=== PATIENT | male | born 1935 | race Caucasian/White ===

== ENCOUNTER 2016-11-02 19:07 | Inpatient (IN) | payer MEDICARE, OTHER ==
[~2016-11-02] VITALS: Ht 165.1 cm; Wt 80.3 kg
[~2016-11-02 19:07] MED LIST: ATEN1TAB4 PO; CHOL500016 PO; LOSA100T6 PO; PRAV40TA2 PO; TRAM50TA PO
[2016-11-02] MEDS ORDERED: IV NORMAL SALINE 1000ML BAG 1,000 ML IV SCH (19:39)
[2016-11-02] MEDS ORDERED: DIAZEPAM 10 MG/2 ML DISP.SYRIN. IV ONE (19:45)
[2016-11-02] MEDS ORDERED: ONDANSETRON PF 4 MG/2 ML VIAL. IV ONE (19:45)
[2016-11-02] MEDS ORDERED: FENTANYL PF 100 MCG/2 ML VIAL. IV ONE (19:45)
[2016-11-02 19:53] LABS: BASO % 0 % (0-3); EOS % 2 % (0-3); HEMATOCRIT 34.2 % (39.0-53.0); HEMOGLOBIN 11.3 g/dL (13.0-17.5); LYMPH # 2.2 x10^3/uL (1.0-4.8); LYMPH % 20 % (24-48); MEAN CORPUSCULAR HEMOGLOBIN 31 pg (25-35); MEAN CORPUSCULAR HGB CONC 33 g/dL (31-37); MEAN CORPUSCULAR VOLUME 93 fL (79-100); MONO % 8 % (0-9); NEUT % 70 % (31-73); PLATELET COUNT 223 x10^3/uL (140-400); RED BLOOD COUNT 3.68 x10^6/uL (4.30-5.70); RED CELL DISTRIBUTION WIDTH 13.8 % (11.5-14.5); WHITE BLOOD COUNT 11.3 x10^3/uL (4.0-11.0)
[2016-11-02 20:00] LABS: CALCIUM 9.3 mg/dL (8.5-10.1); CREATININE 2.4 mg/dL (0.7-1.3); POTASSIUM 3.6 mmol/L (3.5-5.1)
--- NOTE | 2016-11-02 20:01 | PHYS DOC ---
Past Medical History Past Medical History: Cancer, High Cholesterol, Hypertension, Renal Disease Additional Past Medical Histor: prostate CA Past Surgical History: Cancer Surgery Additional Past Surgical Histo: Left fistula, prostate, cataract Alcohol Use: None Drug Use: None Adult General Chief Complaint Chief Complaint: HEADACHE HPI HPI Patient is a 81 year old male who presents with complaint of headache. Patient states that he has had symptoms for the past 2 days. Patient states that he has progressive worsening symptoms throughout the day today. Patient states that he is having stiffness and pain on the left side of his neck. Patient denies any known injury. Patient denies any associated fever. Patient has been having nausea and vomiting which started today with worsening of his pain. Patient rates pain currently as 7 out of 10. Patient denies any associated chest pain or shortness of breath. Patient has not taken any medications to help with the symptoms currently. Patient states that his symptoms worsen with movement. Review of Systems Review of Systems Constitutional: Denies fever or chills [] Eyes: Denies change in visual acuity, redness, or eye pain [] HENT: Denies nasal congestion or sore throat [] Respiratory: Denies cough or shortness of breath [] Cardiovascular: Denies chest pain or edema [] GI: Nausea, vomiting, denies abdominal pain, bloody stools or diarrhea [] : Denies dysuria or hematuria [] Musculoskeletal: Neck pain [] Integument: Denies rash or skin lesions [] Neurologic: Headache, dizziness, denies focal weakness [] Endocrine: Denies polyuria or polydipsia [] Current Medications Current Medications Current Medications Medications (Trade) Dose Ordered Sig/[facility] Start Time Stop Time Status Last Admin Dose Admin Diazepam (Valium) 5 mg 1X ONCE 11/02/16 19:45 11/02/16 19:46 DC 11/02/16 19:54 5 MG Fentanyl Citrate (Fentanyl 2ml Vial) 25 mcg 1X ONCE 11/02/16 19:45 11/02/16 19:46 DC 11/02/16 19:53 25 MCG Ondansetron HCl 4 mg 4 mg 1X ONCE 11/02/16 19:45 11/02/16 19:46 DC 11/02/16 19:54 4 MG Sodium Chloride (Iv Sodium Chloride 0.9% 1000ml Bag) 1,000 ml @ 100 mls/hr Q10H 11/02/16 19:39 11/03/16 05:38 11/02/16 19:54 100 MLS/HR Allergies Allergies Allergies Coded Allergies Type Severity Reaction Last Updated Verified No Known Drug Allergies 07/18/14 No Physical Exam Physical Exam Constitutional: Alert, afebrile, appears in moderate discomfort. [] HENT: Normocephalic, atraumatic, bilateral external ears normal, oropharynx moist, no oral exudates, nose normal. [] Eyes: PERRLA, EOMI, conjunctiva normal, no discharge. [] Neck: Limited range of motion secondary to pain, tenderness palpation along left paraspinous musculature extending along left trapezius muscle, no midline tenderness, no stridor. [] Cardiovascular:Heart rate regular rhythm, no murmur [] Lungs & Thorax: Bilateral breath sounds clear to auscultation [] Abdomen: Bowel sounds normal, soft, no tenderness, no masses, no pulsatile masses. [] Skin: Warm, dry, no erythema, no rash. [] Back: No tenderness, no CVA tenderness. [] Extremities: No tenderness, no cyanosis, no clubbing, ROM intact, no edema. [] Neurologic: Alert and oriented X 3, normal motor function, normal sensory function, no focal deficits noted. [] Current Patient Data Vital Signs Vital Signs Date Time Temp Pulse Resp B/P Pulse Ox O2 Delivery O2 Flow Rate FiO2 11/02/16 20:39 73 14 152/72 98 Nasal Cannula 2 11/02/16 19:08 97.1 97.1 Lab Values Laboratory Tests Test 11/02/16 19:30 11/02/16 20:15 White Blood Count 11.3x10^3/uL (4.0-11.0) H Red Blood Count 3.68x10^6/uL (4.30-5.70) L Hemoglobin 11.3g/dL (13.0-17.5) L Hematocrit 34.2% (39.0-53.0) L Mean Corpuscular Volume 93fL (79-100) Mean Corpuscular Hemoglobin 31pg (25-35) Mean Corpuscular Hemoglobin Concent 33g/dL (31-37) Red Cell Distribution Width 13.8% (11.5-14.5) Platelet Count 223x10^3/uL (140-400) Neutrophils (%) (Auto) 70% (31-73) Lymphocytes (%) (Auto) 20% (24-48) L Monocytes (%) (Auto) 8% (0-9) Eosinophils (%) (Auto) 2% (0-3) Basophils (%) (Auto) 0% (0-3) Neutrophils # (Auto) 8.0x10^3uL (1.8-7.7) H Lymphocytes # (Auto) 2.2x10^3/uL (1.0-4.8) Monocytes # (Auto) 0.9x10^3/uL (0.0-1.1) Eosinophils # (Auto) 0.2x10^3/uL (0.0-0.7) Basophils # (Auto) 0.0x10^3/uL (0.0-0.2) Sodium Level 138mmol/L (136-145) Potassium Level 3.6mmol/L (3.5-5.1) Chloride Level 101mmol/L (98-107) Carbon Dioxide Level 20mmol/L (21-32) L Anion Gap 17 (6-14) H Blood Urea Nitrogen 46mg/dL (8-26) H Creatinine 2.4mg/dL (0.7-1.3) H Estimated GFR (Cockcroft-Gault) 26.0 BUN/Creatinine Ratio 19 (6-20) Glucose Level 138mg/dL (70-99) H Calcium Level 9.3mg/dL (8.5-10.1) Magnesium Level 1.7mg/dL (1.8-2.4) L Total Bilirubin 0.6mg/dL (0.2-1.0) Aspartate Amino Transferase (AST) 19U/L (15-37) Alanine Aminotransferase (ALT) 14U/L (16-63) L Alkaline Phosphatase 69U/L (46-116) Total Protein 7.6g/dL (6.4-8.2) Albumin 3.3g/dL (3.4-5.0) L Albumin/Globulin Ratio 0.8 (1.0-1.7) L Lipase 196U/L (73-393) Urine Collection Type Unknown Urine Color Yellow Urine Clarity Clear Urine pH 5.0 Urine Specific [place] 1.015 Urine Protein 30mg/dL (NEG-TRACE) Urine Glucose (UA) Negativemg/dL (NEG) Urine Ketones (Stick) Negativemg/dL (NEG) Urine Blood Negative (NEG) Urine Nitrite Negative (NEG) Urine Bilirubin Negative (NEG) Urine Urobilinogen Dipstick 0.2mg/dL (0.2 mg/dL) Urine Leukocyte Esterase Negative (NEG) Urine RBC Occ/HPF (0-2) Urine WBC Occ/HPF (0-4) Urine Squamous Epithelial Cells Few/LPF Urine Bacteria 0/HPF (0-FEW) Urine Hyaline Casts Few/HPF Urine Granular Casts Few/HPF Urine Mucus Slight/LPF Laboratory Tests 11/02/16 19:30 Laboratory Tests 11/02/16 19:30 EKG EKG Interpreted by me: Heart rate 72, sinus rhythm, normal intervals, normal axis, no acute ST/T-wave abnormalities present [] Radiology/Procedures Radiology/Procedures 3 view cervical x-ray series interpreted by me: Moderate to severe degenerative arthritic changes at C4 over C5 and C5 over C6, no acute fractures, normal alignment [facility] [address] [facility] [place], [place] [id number] IMAGING REPORT Signed PATIENT: ROSS MENDOZA ACCOUNT: [id number] : 1935 LOCATION: ER AGE: 81 SEX: M EXAM STATUS: REG ER ORD. PHYSICIAN: JOSE CHU MD REASON: headache PROCEDURE: HEAD WO CONTRAST PROCEDURE CT head without contrast. HISTORY Headache. TECHNIQUE Noncontrast CT head was obtained. One or more of the following individualized dose reduction techniques were utilized for this exam: 1. Automated exposure control. 2. Adjustment of the mA and/or kV according to patient's size. 3. Use of iterative reconstruction technique. COMPARISON None. FINDINGS There is prominence of the ventricles and sulci. Areas of decreased attenuation in the supratentorial white matter are nonspecific but most suggestive of minimal small vessel ischemic disease. There is no acute intracranial hemorrhage or extra-axial fluid collection. There is no mass effect or midline shift. Patel-white differentiation is preserved. Vascular calcifications are noted. Paranasal sinuses and mastoid air cells are clear. IMPRESSION No acute intracranial findings. Brain parenchymal volume loss and minimal probable small-vessel ischemic disease. Electronically signed by: Wili Euceda MD (Nov 02, 2016 20:32:17) DICTATED and SIGNED BY: WILI EUCEDA MD DATE: 11/02/162031 CC: JOSE CHU MD; ESTEBAN REEVES MD ~ [] Course & Med Decision Making Course & Med Decision Making Pertinent Labs and Imaging studies reviewed. (See chart for details) The patient was treated with IV Valium, Zofran, and fentanyl. On reevaluation, patient states that his neck pain and headache have improved. The patient's lab work shows a significant elevation in BUN and creatinine with no prior comparison. The patient does appear dehydrated on exam and his generalized weakness is consistent with dehydration. After speaking with the patient and the patient's family they feel more comfortable as well as the patient to stay in the hospital for continued IV hydration to ensure improvement in symptoms. I spoke with Dr. Savage who is on-call for Dr. Reeves and he accepted care patient in hospital. Dragon Disclaimer Dragon Disclaimer This electronic medical record was generated, in whole or in part, using a voice recognition dictation system. Departure Departure Impression: Primary Impression: Dehydration Additional Impressions: Acute on chronic renal failure Headache Cervical arthritis Disposition: ADMITTED INPATIENT Admitting Physician: Nawaf Savage Condition: STABLE Referrals: ESTEBAN REEVES MD (PCP) Problem Qualifiers Additional Impressions: Headache Headache type: unspecified Headache chronicity pattern: acute headache Intractability: not intractable Qualified Code: R51 - Headache JOSE CHU MD Nov 02, 2016 20:01
[2016-11-02 20:06] LABS: ALBUMIN 3.3 g/dL (3.4-5.0); ALBUMIN/GLOBULIN RATIO 0.8 (1.0-1.7); MAGNESIUM 1.7 mg/dL (1.8-2.4); TOTAL BILIRUBIN 0.6 mg/dL (0.2-1.0); TOTAL PROTEIN 7.6 g/dL (6.4-8.2)
[2016-11-02 20:24] LABS: BILIRUBIN,URINE NEGATIVE (NEG); GLUCOSE,URINE NEGATIVE (NEG); NITRITE,URINE NEGATIVE (NEG); PROTEIN,URINE 30 mg/dL (NEG-TRACE); UROBILINOGEN,URINE 0.2 mg/dL (0.2 mg/dL)
--- NOTE | 2016-11-02 20:34 | RAD ---
PROCEDURE CT head without contrast. HISTORY Headache. TECHNIQUE Noncontrast CT head was obtained. One or more of the following individualized dose reduction techniques were utilized for this exam: 1. Automated exposure control. 2. Adjustment of the mA and/or kV according to patient's size. 3. Use of iterative reconstruction technique. COMPARISON None. FINDINGS There is prominence of the ventricles and sulci. Areas of decreased attenuation in the supratentorial white matter are nonspecific but most suggestive of minimal small vessel ischemic disease. There is no acute intracranial hemorrhage or extra-axial fluid collection. There is no mass effect or midline shift. Patel-white differentiation is preserved. Vascular calcifications are noted. Paranasal sinuses and mastoid air cells are clear. IMPRESSION No acute intracranial findings. Brain parenchymal volume loss and minimal probable small-vessel ischemic disease. Electronically signed by: Wili Euceda MD (Nov 02, 2016 20:32:17)
[2016-11-02 20:35] LABS: RBC,URINE OCC /HPF (0-2); WBC,URINE OCC /HPF (0-4)
[2016-11-02 20:36] LABS: BACTERIA,URINE 0 /HPF (0-FEW); SQUAMOUS EPITHELIAL CELL,UR FEW /LPF
[2016-11-02] MEDS ORDERED: FENTANYL PF 100 MCG/2 ML VIAL. IV PRN (22:15)
[2016-11-02] MEDS ORDERED: ONDANSETRON PF 4 MG/2 ML VIAL. IV PRN (22:15)
[2016-11-02 22:20] VITALS: BP 151/46
--- NOTE | 2016-11-02 22:42 | ACF ---
Admission Forms Criteria HEADACHES Clinical Indications for Admission to Inpatient Care (Place 'X' for any and all applicable criteria): Admission is indicated for ANY ONE of the following(1)(2)(3)(4): [X]I. Inpatient admission required rather than observational care (Also use Headaches: Observation Care as appropriate) because of ANY ONE of the following: [ ]a) Severe pain requiring acute inpatient management [ ]b) Altered mental status that is severe or persistent [ ]c) Vomiting or dehydration that is severe or persistent [ ]d) New-onset focal neurologic deficit that is severe or persistent [X]e) Hypertension requiring inpatient treatment [ ]f) Severe (new) neurologic findings requiring inpatient care as indicated by ANY ONE of following(9)(10): [ ]1) Papilledema [ ]2) Cerebral edema [ ]3) Mass effect on CT scan [ ]4) Cerebral bleeding, ischemia, or vasospasm(16) [ ]5) Hydrocephalus(17) [ ]6) Uncontrolled seizures [ ]g) IV infusion of anticoagulation, platelet inhibitors vasoactive, or antiarrhythmic medication. [ ]h) Cerebral bleeding, hydrocephalus, or vasospasm monitoring (16) [ ]i) Increased intracranial pressure or cerebral edema monitoring (17) [ ]j) Other condition, treatment or monitoring requiring inpatient admission [ ]II. Unruptured but threatening aneurysm or vascular malformation [ ]III. Venous sinus thrombosis [ ]IV. Increased intracranial pressure [ ]V. Cerebral spinal fluid leak with decreased intracranial pressure [ ]. Medication-overuse headache that has failed all outpatient management options [ ]VII. Vasculitis (eg, giant cell (temporal) arteritis, central nervous system vasculitis) requiring IV corticosteroids, IV antithrombotic therapy, or inpatient monitoring (eg, visual symptoms or findings, other ischemic manifestations)[A](10)(11) Extended stay beyond goal length of stay may be needed for (27): [ ]a) Intractable migraine [ ]b) Subarachnoid or intracranial hemorrhage [ ]c) Malignant hypertension [ ]d) Detoxification from drug withdrawal in medication-overuse headache (29) The original [facility] content created by Luis Smith has been revised. The portions of the content which have been revised are identified through the use of italic text or in bold, and Luis Smith has neither reviewed nor approved the modified material.All other unmodified content is copyright [facility]. Please see references footnoted in the original [facility] edition 2016 Admission Criteria Met?: Yes TANNER MORALES. Nov 02, 2016 22:42
[2016-11-03] MEDS: IV NORMAL SALINE 1000ML BAG 1,000 ML IV SCH ×3 (01:13→20:50)
[2016-11-03 03:00] VITALS: BP 120/54
[2016-11-03 05:25] LABS: BASO % 0 % (0-3); EOS % 1 % (0-3); HEMOGLOBIN 10.3 g/dL (13.0-17.5); LYMPH # 1.5 x10^3/uL (1.0-4.8); LYMPH % 17 % (24-48); MEAN CORPUSCULAR HEMOGLOBIN 32 pg (25-35); MEAN CORPUSCULAR HGB CONC 34 g/dL (31-37); MEAN CORPUSCULAR VOLUME 92 fL (79-100); MONO % 11 % (0-9); NEUT % 72 % (31-73); PLATELET COUNT 211 x10^3/uL (140-400); RED BLOOD COUNT 3.27 x10^6/uL (4.30-5.70); RED CELL DISTRIBUTION WIDTH 13.9 % (11.5-14.5); WHITE BLOOD COUNT 8.7 x10^3/uL (4.0-11.0)
[2016-11-03 05:42] LABS: CALCIUM 8.3 mg/dL (8.5-10.1); CREATININE 2.3 mg/dL (0.7-1.3); GFR 27.3; POTASSIUM 4.4 mmol/L (3.5-5.1)
[2016-11-03] MEDS ORDERED: TRAMADOL 50 MG TABLET. PO PRN (06:15)
--- NOTE | 2016-11-03 06:53 | EKG ---
[facility] [address] [place] [address] Test Date: 2016-11-02 Test Time: 19:18:41 Pat Name: ROSS MENDOZA Department: Room: Gender: M Cigar Patcher: : 1935 Requested By: JOSE CHU Order Number: [id number] Reading MD: Measurements Intervals [place] Rate: 72 P: 38 KS: 174 QRS: 29 QRSD: 92 T: 23 QT: 400 QTc: 440 Interpretive Statements SINUS RHYTHM QRS(T) CONTOUR ABNORMALITY CONSIDER ANTEROSEPTAL MYOCARDIAL DAMAGE POSSIBLY ABNORMAL ECG RI6.01 No previous ECG available for comparison
[2016-11-03 07:20] VITALS: BP 142/63
--- NOTE | 2016-11-03 07:50 | RAD ---
Indication neck pain. No history of injury. AP lateral and odontoid views of the cervical spine were obtained. C1-C7 are identified. There are spondylitic changes. There is disc space narrowing at C4-5, C5-6 and C6-7. Small osteophytes are seen at several levels. An acute finding is not seen. The prevertebral soft tissues appear normal. IMPRESSION: Spondylitic changes. No acute finding seen
[2016-11-03] MEDS: ATENOLOL 25 MG TABLET PO SCH (08:06)
[2016-11-03] MEDS: LOSARTAN POTASSIUM 50 MG TABLET. PO SCH (08:08)
[2016-11-03] MEDS ORDERED: LACTULOSE 20 GM/30 ML SOLUTION. PO PRN (10:00)
[2016-11-03] MEDS ORDERED: BISACODYL 10 MG SUPP.RECT PR PRN (10:00)
[2016-11-03] MEDS ORDERED: MAGNESIUM SULFATE 2GM 50 ML IV PRN (10:00)
--- NOTE | 2016-11-03 10:02 | PDOC2 ---
CONSULT Date of Consult Date of Consult DATE: 11/03/16 TIME: 09:54 Reason for Consult Reason for Consult: MARY/ CKD III Referring Physician Referring Physician: Dr Savage Identification/Chief Complaint Chief Complaint Neck Pain Problems: Source Source: Caregiver, Chart review, Patient History of Present Illness Reason for Visit: as dictated Past Medical History Cardiovascular: HTN Renal/: Chronic renal insuff, Prostate Ca. Social History Quit ALCOHOL: social Lives: with Family Domestic Violence: Neg Current Problem List Problem List Problems Medical Problems: (1) Acute on chronic renal failure Status: Acute (2) Cervical arthritis Status: Acute (3) Dehydration Status: Acute (4) Headache Status: Acute Current Medications Current Medications Current Medications Ondansetron HCl 4 mg 4 mg 1X ONCE IV Last administered on 11/02/16 19:54; Start 11/02/16 at 19:45; Stop 11/02/16 at 19:46; Status DC Sodium Chloride (Iv Sodium Chloride 0.9% 1000ml Bag) 1,000 ml @ 100 mls/hr Q10H IV Last administered on 11/02/16 19:54; Start 11/02/16 at 19:39; Stop at 05:38; Status DC Diazepam (Valium) 5 mg 1X ONCE IV Last administered on 11/02/16 19:54; Start 11/02/16 at 19:45; Stop 11/02/16 at 19:46; Status DC Fentanyl Citrate (Fentanyl 2ml Vial) 25 mcg 1X ONCE IV Last administered on 19:53; Start 11/02/16 at 19:45; Stop 11/02/16 at 19:46; Status DC Ondansetron HCl (Zofran) 4 mg PRN Q8HRS PRN IV NAUSEA/VOMITING; Start 11/02/16 at 22:15; Stop 11/03/16 at 22:14 Fentanyl Citrate 50 mcg 50 mcg PRN Q2HR PRN IV PAIN; Start 11/02/16 at 22:15; Stop 11/03/16 at 22:14 Sodium Chloride (Iv Sodium Chloride 0.9% 1000ml Bag) 1,000 ml @ 100 mls/hr Q10H IV Last administered on 11/03/16 08:08; Start 11/02/16 at 22:00; Stop at 21:59 Cyclobenzaprine HCl (Flexeril) 10 mg PRN Q6HRS PRN PO MUSCLE SPASMS Last administered on 11/03/16 00:00; Start 11/02/16 at 22:15 Tramadol HCl (Ultram) 50 mg PRN DAILY PRN PO PAIN; Start 11/03/16 at 06:15 Losartan Potassium (Cozaar) 100 mg DAILY PO Last administered on 11/03/16 08: 08; Start 11/03/16 at 09:00 Atorvastatin Calcium (Lipitor) 10 mg HS PO ; Start 11/03/16 at 21:00 Atenolol (Tenormin) 25 mg DAILY PO Last administered on 11/03/16 08:06; Start 11/03/16 at 09:00 Active Scripts Active Reported Losartan Potassium 100 Mg Tablet 50 Mg PO DAILY Atenolol-Chlorthalidone 100-25 (Atenolol/Chlorthalidone) 1 Each Tablet 1 Each PO Tramadol Hcl 50 Mg Tablet 50 Mg PO DAILY PRN Vitamin D3 (Cholecalciferol (Vitamin D3)) 5,000 Unit Tablet 5,000 Unit PO Pravastatin Sodium 40 Mg Tablet 40 Mg PO DAILY Allergies Allergies: Coded Allergies: No Known Drug Allergies (Unverified , 07/18/14) ROS Review of System GEN: no Fevers no Chills EYES: no nwe Visual Complaints ENT: no EN Drainage no Hearing deficiets NEck pain CVS: no Orthopnea no CP RESP: no SOB no JONES GI: no Nausea no Vomiting + Constipation : no Dysuria no Urgency HEME: no easy bruising no Palp Ly Nodes NEURO no Focal Weakness no Sz PSYCH: no Suicidal Ideation no Depression SKIN: no Rashes ENDO: no Polyuria or Polydipsia no Hot/Cold Intolerance MU SK: + Arthraigia ? Myalgia (neck Pain) Physical Exam Physical Exam General Appearance: Awake Alert Oriented x 3 In no Distress Eyes: VIsion Unchanged Conjunctiva Normal EN: No EN Drainage Mucous Memb. moist Neck: no JVD no JVP Dec ROm in Neck no Thyromegaly CVS: S1 S2 ? Murmur No Gallop No Rub no Edema Resp: no Rales no Rhonchi no Acc. Muscle use GI: BAS +ve NO Bruit Non Tender Non Distended - Obese : no CVA tenderness; no Suprapubic Tenderness SKIN: no Rashes Breast Exam deferred Mu.Sk: Adequate ROM in ext no Muscle Atrophy Heme: Unable to palpate Obvious LAD no palp Splenomegaly NEURO: Good Strength and Tone Cranial Nerves II - XII grossly intact Psych: nto Depressed no Active hallucination Vital Signs Vital Signs Date Time Temp Pulse Resp B/P Pulse Ox O2 Delivery O2 Flow Rate FiO2 11/03/16 08:08 71 142/63 11/03/16 08:00 Nasal Cannula 2.0 11/03/16 07:20 97.9 18 100 97.9 Assessment & Plan Min Dehydration due to diuretics use. may need to stop this if dehydration becomes persistent Current FLuid and E-lyte status does not necessitate emergent need for Dialysis. Will re-evaluate for Dialysis in am CKD III / Iv - presumed due to Small vs dz as noted on head CT - no recent US Anemia: check [place]; Epogen maybe needed as OP; Transfuse as needed. HTN: Current BP meds reviewed. May need to D/c Thiazide constipation - ? due to dehydration - Bowel regimen as ordered. Discussed Plan of Care and prognosis etc. at length with family. Labs Labs Laboratory Tests Test 11/02/16 19:30 11/02/16 20:15 11/03/16 04:50 White Blood Count 11.3x10^3/uL (4.0-11.0) 8.7x10^3/uL (4.0-11.0) Red Blood Count 3.68x10^6/uL (4.30-5.70) 3.27x10^6/uL (4.30-5.70) Hemoglobin 11.3g/dL (13.0-17.5) 10.3g/dL (13.0-17.5) Hematocrit 34.2% (39.0-53.0) 30.0% (39.0-53.0) Mean Corpuscular Volume 93fL (79-100) 92fL (79-100) Mean Corpuscular Hemoglobin 31pg (25-35) 32pg (25-35) Mean Corpuscular Hemoglobin Concent 33g/dL (31-37) 34g/dL (31-37) Red Cell Distribution Width 13.8% (11.5-14.5) 13.9% (11.5-14.5) Platelet Count 223x10^3/uL (140-400) 211x10^3/uL (140-400) Neutrophils (%) (Auto) 70% (31-73) 72% (31-73) Lymphocytes (%) (Auto) 20% (24-48) 17% (24-48) Monocytes (%) (Auto) 8% (0-9) 11% (0-9) Eosinophils (%) (Auto) 2% (0-3) 1% (0-3) Basophils (%) (Auto) 0% (0-3) 0% (0-3) Neutrophils # (Auto) 8.0x10^3uL (1.8-7.7) 6.2x10^3uL (1.8-7.7) Lymphocytes # (Auto) 2.2x10^3/uL (1.0-4.8) 1.5x10^3/uL (1.0-4.8) Monocytes # (Auto) 0.9x10^3/uL (0.0-1.1) 0.9x10^3/uL (0.0-1.1) Eosinophils # (Auto) 0.2x10^3/uL (0.0-0.7) 0.1x10^3/uL (0.0-0.7) Basophils # (Auto) 0.0x10^3/uL (0.0-0.2) 0.0x10^3/uL (0.0-0.2) Sodium Level 138mmol/L (136-145) 140mmol/L (136-145) Potassium Level 3.6mmol/L (3.5-5.1) 4.4mmol/L (3.5-5.1) Chloride Level 101mmol/L (98-107) 106mmol/L (98-107) Carbon Dioxide Level 20mmol/L (21-32) 23mmol/L (21-32) Anion Gap 17 (6-14) 11 (6-14) Blood Urea Nitrogen 46mg/dL (8-26) 43mg/dL (8-26) Creatinine 2.4mg/dL (0.7-1.3) 2.3mg/dL (0.7-1.3) Estimated GFR (Cockcroft-Gault) 26.0 27.3 BUN/Creatinine Ratio 19 (6-20) Glucose Level 138mg/dL (70-99) 95mg/dL (70-99) Calcium Level 9.3mg/dL (8.5-10.1) 8.3mg/dL (8.5-10.1) Magnesium Level 1.7mg/dL (1.8-2.4) Total Bilirubin 0.6mg/dL (0.2-1.0) Aspartate Amino Transf (AST/SGOT) 19U/L (15-37) Alanine Aminotransferase (ALT/SGPT) 14U/L (16-63) Alkaline Phosphatase 69U/L (46-116) Total Protein 7.6g/dL (6.4-8.2) Albumin 3.3g/dL (3.4-5.0) Albumin/Globulin Ratio 0.8 (1.0-1.7) Lipase 196U/L (73-393) Urine Collection Type Unknown Urine Color Yellow Urine Clarity Clear Urine pH 5.0 Urine Specific [place] 1.015 Urine Protein 30mg/dL (NEG-TRACE) Urine Glucose (UA) Negativemg/dL (NEG) Urine Ketones (Stick) Negativemg/dL (NEG) Urine Blood Negative (NEG) Urine Nitrite Negative (NEG) Urine Bilirubin Negative (NEG) Urine Urobilinogen Dipstick 0.2mg/dL (0.2 mg/dL) Urine Leukocyte Esterase Negative (NEG) Urine RBC Occ/HPF (0-2) Urine WBC Occ/HPF (0-4) Urine Squamous Epithelial Cells Few/LPF Urine Bacteria 0/HPF (0-FEW) Urine Hyaline Casts Few/HPF Urine Granular Casts Few/HPF Urine Mucus Slight/LPF Laboratory Tests Test 11/02/16 19:30 11/02/16 20:15 11/03/16 04:50 White Blood Count 11.3x10^3/uL (4.0-11.0) 8.7x10^3/uL (4.0-11.0) Red Blood Count 3.68x10^6/uL (4.30-5.70) 3.27x10^6/uL (4.30-5.70) Hemoglobin 11.3g/dL (13.0-17.5) 10.3g/dL (13.0-17.5) Hematocrit 34.2% (39.0-53.0) 30.0% (39.0-53.0) Mean Corpuscular Volume 93fL (79-100) 92fL (79-100) Mean Corpuscular Hemoglobin 31pg (25-35) 32pg (25-35) Mean Corpuscular Hemoglobin Concent 33g/dL (31-37) 34g/dL (31-37) Red Cell Distribution Width 13.8% (11.5-14.5) 13.9% (11.5-14.5) Platelet Count 223x10^3/uL (140-400) 211x10^3/uL (140-400) Neutrophils (%) (Auto) 70% (31-73) 72% (31-73) Lymphocytes (%) (Auto) 20% (24-48) 17% (24-48) Monocytes (%) (Auto) 8% (0-9) 11% (0-9) Eosinophils (%) (Auto) 2% (0-3) 1% (0-3) Basophils (%) (Auto) 0% (0-3) 0% (0-3) Neutrophils # (Auto) 8.0x10^3uL (1.8-7.7) 6.2x10^3uL (1.8-7.7) Lymphocytes # (Auto) 2.2x10^3/uL (1.0-4.8) 1.5x10^3/uL (1.0-4.8) Monocytes # (Auto) 0.9x10^3/uL (0.0-1.1) 0.9x10^3/uL (0.0-1.1) Eosinophils # (Auto) 0.2x10^3/uL (0.0-0.7) 0.1x10^3/uL (0.0-0.7) Basophils # (Auto) 0.0x10^3/uL (0.0-0.2) 0.0x10^3/uL (0.0-0.2) Sodium Level 138mmol/L (136-145) 140mmol/L (136-145) Potassium Level 3.6mmol/L (3.5-5.1) 4.4mmol/L (3.5-5.1) Chloride Level 101mmol/L (98-107) 106mmol/L (98-107) Carbon Dioxide Level 20mmol/L (21-32) 23mmol/L (21-32) Anion Gap 17 (6-14) 11 (6-14) Blood Urea Nitrogen 46mg/dL (8-26) 43mg/dL (8-26) Creatinine 2.4mg/dL (0.7-1.3) 2.3mg/dL (0.7-1.3) Estimated GFR (Cockcroft-Gault) 26.0 27.3 BUN/Creatinine Ratio 19 (6-20) Glucose Level 138mg/dL (70-99) 95mg/dL (70-99) Calcium Level 9.3mg/dL (8.5-10.1) 8.3mg/dL (8.5-10.1) Magnesium Level 1.7mg/dL (1.8-2.4) Total Bilirubin 0.6mg/dL (0.2-1.0) Aspartate Amino Transf (AST/SGOT) 19U/L (15-37) Alanine Aminotransferase (ALT/SGPT) 14U/L (16-63) Alkaline Phosphatase 69U/L (46-116) Total Protein 7.6g/dL (6.4-8.2) Albumin 3.3g/dL (3.4-5.0) Albumin/Globulin Ratio 0.8 (1.0-1.7) Lipase 196U/L (73-393) Urine Collection Type Unknown Urine Color Yellow Urine Clarity Clear Urine pH 5.0 Urine Specific [place] 1.015 Urine Protein 30mg/dL (NEG-TRACE) Urine Glucose (UA) Negativemg/dL (NEG) Urine Ketones (Stick) Negativemg/dL (NEG) Urine Blood Negative (NEG) Urine Nitrite Negative (NEG) Urine Bilirubin Negative (NEG) Urine Urobilinogen Dipstick 0.2mg/dL (0.2 mg/dL) Urine Leukocyte Esterase Negative (NEG) Urine RBC Occ/HPF (0-2) Urine WBC Occ/HPF (0-4) Urine Squamous Epithelial Cells Few/LPF Urine Bacteria 0/HPF (0-FEW) Urine Hyaline Casts Few/HPF Urine Granular Casts Few/HPF Urine Mucus Slight/LPF Images Images No acute intracranial findings. Brain parenchymal volume loss and minimal probable small-vessel ischemic disease. Indication neck pain. No history of injury. AP lateral and odontoid views of the cervical spine were obtained. C1-C7 are identified. There are spondylitic changes. There is disc space narrowing at C4-5, C5-6 and C6-7. Small osteophytes are seen at several levels. An acute finding is not seen. The prevertebral soft tissues appear normal. IMPRESSION: Spondylitic changes. No acute finding DEMI Sena MD Nov 03, 2016 10:02
[2016-11-03] MEDS ORDERED: MAGNESIUM SULFATE 1GM 100 ML IV ONE (10:30)
[2016-11-03 10:43] LABS: % SAT IRON 16 % (15-34); IRON,SERUM 30 ug/dL (65-175)
[2016-11-03 11:00] VITALS: BP 134/61
[2016-11-03] MEDS: SENNOSIDES/DOCUSATE 8.6/50MG TABLET. PO SCH ×2 (11:06→20:50)
--- NOTE | 2016-11-03 11:07 | RAD ---
Bilateral renal ultrasound without comparison for chronic kidney disease. Technique an findings: Real-time grayscale and color Doppler evaluation of the kidneys and urinary bladder is performed. The urinary bladder is largely decompressed as the patient had voided immediately prior to the examination. Post void residual is 70.1 mL's. The right kidney measures 8.4 x 4.2 x 4.3 cm and the left measures 8.4 x 4.5 x 4.7 cm. There is cortical thinning bilaterally, right greater than left, likely due to chronic renal disease. The upper pole of the left kidney is notable for a 1.8 cm anechoic abnormality which may represent a parapelvic simple cyst, or isolated upper pole dilated calyx. No shadowing calculi are identified. Impression: 1. 1.7 cm left upper pole parapelvic cyst versus dilated upper pole calyx. No obvious source of obstruction, and parapelvic cyst is favored. Correlate clinically and consider ultrasound follow-up in 3-6 months. 2. Postvoid residual of 70.1 cc.
--- NOTE | 2016-11-03 13:37 | PDOC1 ---
History and Physical Date of Admission Date of Admission DATE: 11/03/16 TIME: 13:21 I received a call from his son last evening as pt was complaining of neck pain, vertigo, dizziness and he had not been eating or drinking and they were worried about his kidneys. The tried giving him some soup and I suggested Benadryl or meclizine but they eventually brought him to the ER where he was found to be a bit dehydrated and was admitted for IVF, nausea control, dizziness control and pain control. He claims to be feeling much better today. He velarde a fistula for dialysis but has never used it. Renal is consulted Identification/Chief Complaint Chief Complaint as above Source Source: Caregiver, Patient History of Present Illness History of Present Illness as above Past Medical History Cardiovascular: HTN Renal/: Chronic renal insuff, Prostate Ca. Past Surgical History Past Surgical History: Cataract Removal (2 weeks ago), Other (prostatectomy, dialysis shunt left arm) Social History Smoke: Quit ALCOHOL: social Current Problem List Problem List Problems Medical Problems: (1) Acute on chronic renal failure Status: Acute (2) Cervical arthritis Status: Acute (3) Dehydration Status: Acute (4) Headache Status: Acute Problems: Current Medications Current Medications Current Medications Ondansetron HCl 4 mg 4 mg 1X ONCE IV Last administered on 11/02/16 19:54; Start 11/02/16 at 19:45; Stop 11/02/16 at 19:46; Status DC Sodium Chloride (Iv Sodium Chloride 0.9% 1000ml Bag) 1,000 ml @ 100 mls/hr Q10H IV Last administered on 11/02/16 19:54; Start 11/02/16 at 19:39; Stop at 05:38; Status DC Diazepam (Valium) 5 mg 1X ONCE IV Last administered on 11/02/16 19:54; Start 11/02/16 at 19:45; Stop 11/02/16 at 19:46; Status DC Fentanyl Citrate (Fentanyl 2ml Vial) 25 mcg 1X ONCE IV Last administered on 19:53; Start 11/02/16 at 19:45; Stop 11/02/16 at 19:46; Status DC Ondansetron HCl (Zofran) 4 mg PRN Q8HRS PRN IV NAUSEA/VOMITING; Start 11/02/16 at 22:15; Stop 11/03/16 at 22:14 Fentanyl Citrate 50 mcg 50 mcg PRN Q2HR PRN IV PAIN; Start 11/02/16 at 22:15; Stop 11/03/16 at 22:14 Sodium Chloride (Iv Sodium Chloride 0.9% 1000ml Bag) 1,000 ml @ 100 mls/hr Q10H IV Last administered on 11/03/16 08:08; Start 11/02/16 at 22:00; Stop at 21:59 Cyclobenzaprine HCl (Flexeril) 10 mg PRN Q6HRS PRN PO MUSCLE SPASMS Last administered on 11/03/16 00:00; Start 11/02/16 at 22:15 Tramadol HCl (Ultram) 50 mg PRN DAILY PRN PO PAIN; Start 11/03/16 at 06:15 Losartan Potassium (Cozaar) 100 mg DAILY PO Last administered on 11/03/16 08: 08; Start 11/03/16 at 09:00 Atorvastatin Calcium (Lipitor) 10 mg HS PO ; Start 11/03/16 at 21:00 Atenolol (Tenormin) 25 mg DAILY PO Last administered on 11/03/16 08:06; Start 11/03/16 at 09:00 Senna/Docusate Sodium (Senna Plus) 1 tab BID PO Last administered on 11/03/16 11:06; Start 11/03/16 at 10:00 Lactulose 20 gm PRN Q12HR PRN PO CONSTIPATION; Start 11/03/16 at 10:00 Bisacodyl 10 mg 10 mg PRN DAILY PRN GA CONSTIPATION; Start 11/03/16 at 10:00 Magnesium Sulfate/ Dextrose 50 ml @ 25 mls/hr PRN DAILY PRN IV for Mag < 1.7 on am labs; Start 11/03/16 at 10:00 Magnesium Sulfate/ Dextrose (Magnesium Sulfate PREMIX 1GM) 100 ml @ 100 mls/hr 1X ONCE IV Last administered on 11/03/16 11:06; Start 11/03/16 at 10:30; Stop 11/03/16 at 11:29; Status DC Active Scripts Active Reported Losartan Potassium 100 Mg Tablet 50 Mg PO DAILY Atenolol-Chlorthalidone 100-25 (Atenolol/Chlorthalidone) 1 Each Tablet 1 Each PO Tramadol Hcl 50 Mg Tablet 50 Mg PO DAILY PRN Vitamin D3 (Cholecalciferol (Vitamin D3)) 5,000 Unit Tablet 5,000 Unit PO Pravastatin Sodium 40 Mg Tablet 40 Mg PO DAILY Allergies Allergies: Coded Allergies: No Known Drug Allergies (Unverified , 07/18/14) ROS General: YES: Appetite (diminished since cataract surgery 2 weeks ago) PSYCHOLOGICAL ROS: No: Anxiety, Behavioral Disorder, Concentration difficultie , Decreased libido, Depression, Disorientation, Hallucinations, Hostility, Irritablity, Memory difficulties, Mood Swings, Obsessive thoughts, Physical abuse, Sexual abuse, Sleep disturbances, Suicidal ideation Eyes: No Blurry vision, No Decreased vision, No Double vision, No Dry eyes, No Excessive tearing, No Eye Pain, No Itchy Eyes, No Loss of vision, No Photophobia , No Scotomata, No Uses contacts, No Uses glasses HEENT: YES: Heacaches, Vertigo, No: Epistaxis, Hearing change, Nasal congestion, Nasal discharge, Oral lesions, Sinus pain, Sneezing, Snoring, Sore Throat, Tinnitus, Visual Changes, Vocal changes ALLERGY AND IMMUNOLOGY: No: Hives, Insect Bite Sensitivity, Itchy/Watery Eyes, Nasal Congestion, Post Nasal Drip, Seasonal Allergies Hematological and Lymphatic: No: Bleeding Problems, Blood Clots, Blood Transfusions, Brusing, Night Sweats, Pallor, Swollen Lymph Nodes ENDOCRINE: No: Breast Changes, Galactorrhea, Hair Pattern Changes, Hot Flashes , Malaise/lethargy, Mood Swings, Palpitations, Polydipsia/polyuria, Skin Changes , Temperature Intolerance, Unexpected Weight Changes Respiratory: No: Cough, Hemoptysis, Orthopnea, Pleuritic Pain, SOB with excertion, Shortness of breath, Sputum Changes, Stridor, Tachypnea, Wheezing Cardiovascular: yes Lt Headedness, No Chest Pain, No Edema, No Orthopnea, No Palpitations, No Paroxysmal Noc. Dyspnea Gastrointestinal: Yes Constipation, Yes Nausea, No Abdominal Pain, No Diarrhea, No Hematochezia, No Melena, No Vomiting Genitourinary: YES Other (leakage since prostatectomy) Neurological: Yes Dizziness, No Behavorial Changes, No Bowel/Bladder ControlChng, No Confusion, No Gait Disturbance, No Headaches, No Impaired Coord/balance, No Memory Loss, No Numbness/Tingling, No Seizures, No Speech Problems, No Tremors, No Visual Changes, No Weakness Skin: No Acne, No Dry Skin, No Eczema, No Hair Changes, No Lumps, No Mole Changes, No Mottling, No Nail Changes, No Other, No Pruritus, No Rash, No Skin Lesion Changes Physical Exam General: Alert, Oriented X3, Cooperative HEENT: Atraumatic, PERRLA, EOMI, Mucous membr. moist/pink Lungs: Clear to auscultation Heart: RRR Abdomen: Soft, No tenderness, No hepatosplenomegaly, No masses Rectal Exam: not examined Extremities: No clubbing, No cyanosis, No edema Skin: No rashes Neuro: Normal tone Psych/Mental Status: Mental status NL Vitals Vitals Vital Signs Date Time Temp Pulse Resp B/P Pulse Ox O2 Delivery O2 Flow Rate FiO2 11/03/16 11:00 96.6 70 18 134/61 99 Nasal Cannula 2.0 96.6 Labs Labs Laboratory Tests Test 11/02/16 19:30 11/02/16 20:15 11/03/16 04:50 White Blood Count 11.3x10^3/uL (4.0-11.0) 8.7x10^3/uL (4.0-11.0) Red Blood Count 3.68x10^6/uL (4.30-5.70) 3.27x10^6/uL (4.30-5.70) Hemoglobin 11.3g/dL (13.0-17.5) 10.3g/dL (13.0-17.5) Hematocrit 34.2% (39.0-53.0) 30.0% (39.0-53.0) Mean Corpuscular Volume 93fL (79-100) 92fL (79-100) Mean Corpuscular Hemoglobin 31pg (25-35) 32pg (25-35) Mean Corpuscular Hemoglobin Concent 33g/dL (31-37) 34g/dL (31-37) Red Cell Distribution Width 13.8% (11.5-14.5) 13.9% (11.5-14.5) Platelet Count 223x10^3/uL (140-400) 211x10^3/uL (140-400) Neutrophils (%) (Auto) 70% (31-73) 72% (31-73) Lymphocytes (%) (Auto) 20% (24-48) 17% (24-48) Monocytes (%) (Auto) 8% (0-9) 11% (0-9) Eosinophils (%) (Auto) 2% (0-3) 1% (0-3) Basophils (%) (Auto) 0% (0-3) 0% (0-3) Neutrophils # (Auto) 8.0x10^3uL (1.8-7.7) 6.2x10^3uL (1.8-7.7) Lymphocytes # (Auto) 2.2x10^3/uL (1.0-4.8) 1.5x10^3/uL (1.0-4.8) Monocytes # (Auto) 0.9x10^3/uL (0.0-1.1) 0.9x10^3/uL (0.0-1.1) Eosinophils # (Auto) 0.2x10^3/uL (0.0-0.7) 0.1x10^3/uL (0.0-0.7) Basophils # (Auto) 0.0x10^3/uL (0.0-0.2) 0.0x10^3/uL (0.0-0.2) Sodium Level 138mmol/L (136-145) 140mmol/L (136-145) Potassium Level 3.6mmol/L (3.5-5.1) 4.4mmol/L (3.5-5.1) Chloride Level 101mmol/L (98-107) 106mmol/L (98-107) Carbon Dioxide Level 20mmol/L (21-32) 23mmol/L (21-32) Anion Gap 17 (6-14) 11 (6-14) Blood Urea Nitrogen 46mg/dL (8-26) 43mg/dL (8-26) Creatinine 2.4mg/dL (0.7-1.3) 2.3mg/dL (0.7-1.3) Estimated GFR (Cockcroft-Gault) 26.0 27.3 BUN/Creatinine Ratio 19 (6-20) Glucose Level 138mg/dL (70-99) 95mg/dL (70-99) Calcium Level 9.3mg/dL (8.5-10.1) 8.3mg/dL (8.5-10.1) Magnesium Level 1.7mg/dL (1.8-2.4) Total Bilirubin 0.6mg/dL (0.2-1.0) Aspartate Amino Transf (AST/SGOT) 19U/L (15-37) Alanine Aminotransferase (ALT/SGPT) 14U/L (16-63) Alkaline Phosphatase 69U/L (46-116) Total Protein 7.6g/dL (6.4-8.2) Albumin 3.3g/dL (3.4-5.0) Albumin/Globulin Ratio 0.8 (1.0-1.7) Lipase 196U/L (73-393) Urine Collection Type Unknown Urine Color Yellow Urine Clarity Clear Urine pH 5.0 Urine Specific Earling 1.015 Urine Protein 30mg/dL (NEG-TRACE) Urine Glucose (UA) Negativemg/dL (NEG) Urine Ketones (Stick) Negativemg/dL (NEG) Urine Blood Negative (NEG) Urine Nitrite Negative (NEG) Urine Bilirubin Negative (NEG) Urine Urobilinogen Dipstick 0.2mg/dL (0.2 mg/dL) Urine Leukocyte Esterase Negative (NEG) Urine RBC Occ/HPF (0-2) Urine WBC Occ/HPF (0-4) Urine Squamous Epithelial Cells Few/LPF Urine Bacteria 0/HPF (0-FEW) Urine Hyaline Casts Few/HPF Urine Granular Casts Few/HPF Urine Mucus Slight/LPF Reticulocyte Count (auto) 0.8% (0.5-2.5) Iron Level 30ug/dL (65-175) Total Iron Binding Capacity 188ug/dL (250-450) Iron Saturation 16% (15-34) Ferritin 285ng/mL (26-388) Laboratory Tests Test 11/02/16 19:30 11/02/16 20:15 11/03/16 04:50 White Blood Count 11.3x10^3/uL (4.0-11.0) 8.7x10^3/uL (4.0-11.0) Red Blood Count 3.68x10^6/uL (4.30-5.70) 3.27x10^6/uL (4.30-5.70) Hemoglobin 11.3g/dL (13.0-17.5) 10.3g/dL (13.0-17.5) Hematocrit 34.2% (39.0-53.0) 30.0% (39.0-53.0) Mean Corpuscular Volume 93fL (79-100) 92fL (79-100) Mean Corpuscular Hemoglobin 31pg (25-35) 32pg (25-35) Mean Corpuscular Hemoglobin Concent 33g/dL (31-37) 34g/dL (31-37) Red Cell Distribution Width 13.8% (11.5-14.5) 13.9% (11.5-14.5) Platelet Count 223x10^3/uL (140-400) 211x10^3/uL (140-400) Neutrophils (%) (Auto) 70% (31-73) 72% (31-73) Lymphocytes (%) (Auto) 20% (24-48) 17% (24-48) Monocytes (%) (Auto) 8% (0-9) 11% (0-9) Eosinophils (%) (Auto) 2% (0-3) 1% (0-3) Basophils (%) (Auto) 0% (0-3) 0% (0-3) Neutrophils # (Auto) 8.0x10^3uL (1.8-7.7) 6.2x10^3uL (1.8-7.7) Lymphocytes # (Auto) 2.2x10^3/uL (1.0-4.8) 1.5x10^3/uL (1.0-4.8) Monocytes # (Auto) 0.9x10^3/uL (0.0-1.1) 0.9x10^3/uL (0.0-1.1) Eosinophils # (Auto) 0.2x10^3/uL (0.0-0.7) 0.1x10^3/uL (0.0-0.7) Basophils # (Auto) 0.0x10^3/uL (0.0-0.2) 0.0x10^3/uL (0.0-0.2) Sodium Level 138mmol/L (136-145) 140mmol/L (136-145) Potassium Level 3.6mmol/L (3.5-5.1) 4.4mmol/L (3.5-5.1) Chloride Level 101mmol/L (98-107) 106mmol/L (98-107) Carbon Dioxide Level 20mmol/L (21-32) 23mmol/L (21-32) Anion Gap 17 (6-14) 11 (6-14) Blood Urea Nitrogen 46mg/dL (8-26) 43mg/dL (8-26) Creatinine 2.4mg/dL (0.7-1.3) 2.3mg/dL (0.7-1.3) Estimated GFR (Cockcroft-Gault) 26.0 27.3 BUN/Creatinine Ratio 19 (6-20) Glucose Level 138mg/dL (70-99) 95mg/dL (70-99) Calcium Level 9.3mg/dL (8.5-10.1) 8.3mg/dL (8.5-10.1) Magnesium Level 1.7mg/dL (1.8-2.4) Total Bilirubin 0.6mg/dL (0.2-1.0) Aspartate Amino Transf (AST/SGOT) 19U/L (15-37) Alanine Aminotransferase (ALT/SGPT) 14U/L (16-63) Alkaline Phosphatase 69U/L (46-116) Total Protein 7.6g/dL (6.4-8.2) Albumin 3.3g/dL (3.4-5.0) Albumin/Globulin Ratio 0.8 (1.0-1.7) Lipase 196U/L (73-393) Urine Collection Type Unknown Urine Color Yellow Urine Clarity Clear Urine pH 5.0 Urine Specific Earling 1.015 Urine Protein 30mg/dL (NEG-TRACE) Urine Glucose (UA) Negativemg/dL (NEG) Urine Ketones (Stick) Negativemg/dL (NEG) Urine Blood Negative (NEG) Urine Nitrite Negative (NEG) Urine Bilirubin Negative (NEG) Urine Urobilinogen Dipstick 0.2mg/dL (0.2 mg/dL) Urine Leukocyte Esterase Negative (NEG) Urine RBC Occ/HPF (0-2) Urine WBC Occ/HPF (0-4) Urine Squamous Epithelial Cells Few/LPF Urine Bacteria 0/HPF (0-FEW) Urine Hyaline Casts Few/HPF Urine Granular Casts Few/HPF Urine Mucus Slight/LPF Reticulocyte Count (auto) 0.8% (0.5-2.5) Iron Level 30ug/dL (65-175) Total Iron Binding Capacity 188ug/dL (250-450) Iron Saturation 16% (15-34) Ferritin 285ng/mL (26-388) VTE Prophylaxis Ordered VTE Prophylaxis Devices: Yes VTE Pharmacological Prophylaxi: No Assessment/Plan Assessment/Plan 1. neck pain due to cervical spondylosis likely aggravated by positioning for recent cataract extraction - add tramadol 2. CKD with possible MARY from dehydration - renal following 3. nausea, dizziness - resolved with hydration, CT head negative for stroke Yoseph SPEAR MD Nov 03, 2016 13:37
--- NOTE | 2016-11-03 13:51 | CONS ---
DATE OF CONSULTATION: 11/03/2016 PRIMARY PHYSICIAN: Dr. Savage. REASON FOR CONSULTATION: CKD stage 3/4. HISTORY OF PRESENT ILLNESS: The patient is a pleasant 81-year-old gentleman followed by Dr. Gilmore in our practice. He was last seen in June and had a creatinine of 2.5, corresponding to GFR of 26 mL per minute. He presented to the ER last night with neck pain and possibly some headache. He has decreased range of motion. He does not think he has slept the wrong way. He is also constipated. No difficulty with urination that he admits to. He has not been eating or drinking well for the last few days either. His thinks he has been somewhat lethargic also at times. In this setting, he was admitted to the hospital for further evaluation and was given IV fluids in the ER. His creatinine is now 2.3 today. We were asked to see him for his renal insufficiency, blood pressures have been adequate. He is noted to be anemic. PAST MEDICAL HISTORY: Significant for: 1. History of hypertension. 2. Chronic kidney disease stage 4. 3. 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 4. Hyperlipidemia. 5. Hypertension. 6. Prostate cancer, status post prostatectomy. 7. History of kidney stones. 8. AV fistula creation for dialysis, which has not been used yet. 9. Significant other foci of arthritis. 10. Depression. 11. Anxiety. FAMILY HISTORY: Negative for known kidney problems. SOCIAL HISTORY: , lives with his . Please see details. DEMI KAUR MD DR: DAKOTAH/ulises JOB#: [id number] / [id number]
[2016-11-03 14:30] VITALS: BP 135/59
[2016-11-03 19:00] VITALS: BP 133/44
[2016-11-03] MEDS ORDERED: ATORVASTATIN CALCIUM 10 MG TABLET. PO SCH (21:00)
[2016-11-03 22:54] VITALS: BP 146/54
[2016-11-03] MEDS: CYCLOBENZAPRINE 10 MG TABLET. PO PRN ×2 (23:40)
[2016-11-04 05:44] LABS: ALBUMIN 2.6 g/dL (3.4-5.0); CALCIUM 8.1 mg/dL (8.5-10.1); CREATININE 2.4 mg/dL (0.7-1.3); PHOSPHORUS 2.6 mg/dL (2.6-4.7); POTASSIUM 4.2 mmol/L (3.5-5.1)
[2016-11-04 07:00] VITALS: BP 133/55
[2016-11-04] MEDS: LOSARTAN POTASSIUM 50 MG TABLET. PO SCH (08:48)
[2016-11-04] MEDS: SENNOSIDES/DOCUSATE 8.6/50MG TABLET. PO SCH (08:48)
[2016-11-04] MEDS: ATENOLOL 25 MG TABLET PO SCH (08:48)
[2016-11-04] MEDS ORDERED: FERRIC CARBOXYMALTOSE 750 MG in IV NORMAL SALINE 250ML 250 ML IV ONE (10:15)
--- NOTE | 2016-11-04 10:15 | PDOC ---
SUBJECTIVE ROS CKD III Feeling much better, but neck pain is still an issue; still constipated but thinks he will have a BM later today CVS: no Orthopnea, no CP RESP: no SOB, no JONES GI: no Nausea, no Vomiting : no Dysuria, no Urgency OBJECTIVE Vital Signs Vital Signs Date Time Temp Pulse Resp B/P Pulse Ox O2 Delivery O2 Flow Rate FiO2 11/04/16 08:48 78 133/55 11/04/16 08:30 Nasal Cannula 2.0 11/04/16 07:00 97.6 18 98 97.6 I & 0 Intake and Output 11/04/16 07:00 Intake Total 1660 ml Output Total 2550 ml Balance -890 ml Intake Oral 1560 ml IV Total 100 ml Output Urine Total 2550 ml # Voids 1 PHYSICAL EXAM Physical Exam General Appearance: Awake Alert Oriented x 3 In no Distress Eyes: VIsion Unchanged Conjunctiva Normal EN: No EN Drainage Mucous Memb. moist Neck: no JVD no JVP Dec ROm in Neck no Thyromegaly CVS: S1 S2 ? Murmur No Gallop No Rub no Edema Resp: no Rales no Rhonchi no Acc. Muscle use GI: BAS +ve NO Bruit Non Tender Non Distended - Obese : no CVA tenderness; no Suprapubic Tenderness Assessment & Plan Gen Weakness : suspect due to Dehydration from diuretics use and Poor PO intake. D/c Direutics since he has had issues with Occ Orthostasis too. Current FLuid and E-lyte status does not necessitate emergent need for Dialysis. Will re-evaluate for Dialysis in am Mild met Acidosis - PO Bicarb forn ow Parapelvic Cyst - may need OP F/up with URO to confirm benign nature of same ^PVR - URO eval as OP - Have not started Flomax currently due to previous orthostasis CKD IV - presumed due to Small vs dz as noted on head CT - no recent US Anemia: IV Iron; Epogen maybe needed as OP; Transfuse as needed. HTN: Current BP meds reviewed. May need to D/c Thiazide constipation - ? due to dehydration - Bowel regimen as ordered. NO PO Fe due to same. Discussed Plan of Care and prognosis etc. at length with family at [facility]. Keep OP F/up with Dr Mando Ashraf COMMENT/RELEVANT DATA Meds Current Medications Medications (Trade) Dose Ordered Sig/Sammi Start Time Stop Time Status Last Admin Dose Admin Atenolol (Tenormin) 25 mg DAILY 11/03/16 09:00 11/04/16 08:48 25 MG Atorvastatin Calcium (Lipitor) 10 mg HS 11/03/16 21:00 11/03/16 20:50 10 MG Bisacodyl 10 mg 10 mg PRN DAILY PRN 11/03/16 10:00 Cyclobenzaprine HCl (Flexeril) 10 mg PRN Q6HRS PRN 11/02/16 22:15 11/03/16 23:40 10 MG Diazepam (Valium) 5 mg 1X ONCE 11/02/16 19:45 11/02/16 19:46 DC 11/02/16 19:54 5 MG Fentanyl Citrate (Fentanyl 2ml Vial) 25 mcg 1X ONCE 11/02/16 19:45 11/02/16 19:46 DC 11/02/16 19:53 25 MCG Fentanyl Citrate 50 mcg 50 mcg PRN Q2HR PRN 11/02/16 22:15 11/03/16 22:14 DC Lactulose 20 gm PRN Q12HR PRN 11/03/16 10:00 Losartan Potassium (Cozaar) 100 mg DAILY 11/03/16 09:00 11/04/16 08:48 50 MG Magnesium Sulfate/ Dextrose (Magnesium Sulfate PREMIX 1GM) 100 ml @ 100 mls/hr 1X ONCE 11/03/16 10:30 11/03/16 11:29 DC 11/03/16 11:06 100 MLS/HR Ondansetron HCl (Zofran) 4 mg PRN Q8HRS PRN 11/02/16 22:15 11/03/16 22:14 DC Senna/Docusate Sodium (Senna Plus) 1 tab BID 11/03/16 10:00 11/04/16 08:48 1 TAB Sodium Chloride (Iv Sodium Chloride 0.9% 1000ml Bag) 1,000 ml @ 100 mls/hr Q10H 11/02/16 22:00 11/03/16 21:59 DC 11/03/16 20:50 100 MLS/HR Tramadol HCl (Ultram) 50 mg PRN DAILY PRN 11/03/16 06:15 11/03/16 23:40 50 MG Lab Laboratory Tests Test 11/04/16 04:30 Hemoglobin 9.9g/dL (13.0-17.5) Sodium Level 139mmol/L (136-145) Potassium Level 4.2mmol/L (3.5-5.1) Chloride Level 107mmol/L (98-107) Carbon Dioxide Level 19mmol/L (21-32) Anion Gap 13 (6-14) Blood Urea Nitrogen 38mg/dL (8-26) Creatinine 2.4mg/dL (0.7-1.3) Estimated GFR (Cockcroft-Gault) 26.0 Glucose Level 91mg/dL (70-99) Calcium Level 8.1mg/dL (8.5-10.1) Phosphorus Level 2.6mg/dL (2.6-4.7) Magnesium Level 1.8mg/dL (1.8-2.4) Albumin 2.6g/dL (3.4-5.0) Other 1. 1.7 cm left upper pole parapelvic cyst versus dilated upper pole calyx. No obvious source of obstruction, and parapelvic cyst is favored. Correlate clinically and consider ultrasound follow-up in 3-6 months. 2. Postvoid residual of 70.1 cc. DEMI KAUR MD Nov 04, 2016 10:15
[2016-11-04] MEDS ORDERED: IRON SUCROSE COMPLEX 500 MG in IV NORMAL SALINE 250ML 250 ML IV ONE (11:00)
[2016-11-04 11:02] VITALS: BP 139/59
[2016-11-04] MEDS ORDERED: BISACODYL 10 MG SUPP.RECT. PR PRN (13:13)
[2016-11-04 14:43] VITALS: BP 148/63
[2016-11-04] MEDS ORDERED: SENN-22 PO (16:50)
[2016-11-04] MEDS ORDERED: ATEN25TA PO (16:50)
[2016-11-04] MEDS ORDERED: SODI650T PO (16:50)
[2016-11-04] MEDS ORDERED: Bisacodyl PR (16:50)
[2016-11-04] MEDS ORDERED: CYCL10TA2 PO (16:50)
[2016-11-04] MEDS ORDERED: LACT20SO PO (16:50)
--- NOTE | 2016-11-04 16:51 | PDOC ---
Provider Note Provider Note discharge dictated # [id number] Yoseph SPEAR MD Nov 04, 2016 16:51
--- NOTE | 2016-11-04 20:17 | DS ---
DATE OF DISCHARGE: 11/04/2016 ADMISSION DIAGNOSIS: Acute on chronic renal failure. ASSOCIATED DIAGNOSES: Neck pain, dehydration, stage 4 chronic kidney disease, anemia of iron deficiency, hypertension, constipation, generalized weakness. HISTORY AND HOSPITAL COURSE: This is an elderly white male who is 81 years old who had a cataract extracted about 2 weeks previous. He has had some neck pain, since it worsened, his headache worsened, he was nauseated, he was a little bit dizzy, he was not taking p.o. well. He did not have any falls or other injuries. His son called and he did not improve with some outpatient suggestions. He presented to the Emergency Room where he subsequently admitted, started on IV fluids. Renal consultation was obtained. His diuretic was stopped, his atenolol dose was decreased. He was hydrated. He was found to have an iron deficiency anemia and received IV iron. He was started on p.o. bicarb. He has a history of prostate cancer and prostatectomy. He had a little bit of urine retention while here, but in the past Flomax has caused some orthostasis, it was not resumed. He had a CT imaging of his head showing small vessel disease, but no evidence of a stroke. He did not require transfusion for his anemia. He had constipation, presumed due to his dehydration and that was treated with stool softeners and his bowels are moving. His lab showed a hemoglobin drop from 11.3 to 9.9 with hydration, platelets are normal, EGFR is 26, calcium is low, his protein is low, he has moderate protein malnutrition. His iron was low, his TIBC was low, his ferritin was normal, though. Urinalysis was unremarkable. Cervical spine x-ray, neck x-ray showed degenerative changes. Ultrasound of his kidneys showed a 1.7 cm left upper pole parapelvic cyst versus dilated upper pole calyx for which followup was recommended. He had a post-void residual of 70 mL. He will be discharged home on atenolol 25 mg daily, his Tenoretic 100/25 was stopped, bisacodyl suppository 10 mg p.r.n. constipation daily, Flexeril 10 mg q. 6 hours p.r.n. muscle spasm, lactulose 20 g p.o. q. 12 hours p.r.n. constipation, losartan 100 mg daily, Senna Plus 1 tablet b.i.d. p.r.n. constipation, sodium bicarb 1300 mg b.i.d., tramadol 50 mg p.o. daily p.r.n. pain. He will resume his vitamin D3 5000 units daily, pravastatin 40 mg daily. Home health for PT and OT, was seen by both and recommended evaluation and treatment for his generalized weakness. Diet will be renal activity as tolerated. Follow up with Dr. Reeves in the office within 2 weeks. W Sofi SPEAR MD DR: VIRGIE/ulises JOB#: [id number] / [id number]
[2016-11-04] MEDS ORDERED: SODIUM BICARBONATE 650 MG TABLET. PO SCH (21:00)
== END 2016-11-04 18:24 | disposition home health service (06) | DRG 683 ==
LOC: ER 19:07 → 5 NORTH 21:08
PROVIDERS: ADMIT Family Medicine; ATTEND Family Medicine
DX: N17.9 Acute kidney failure, unspecified (principal); E44.0 Moderate protein-calorie malnutrition; M47.812 Spondylosis without myelopathy or radiculopathy, cervical region; N18.4 Chronic kidney disease, stage 4 (severe); D50.9 Iron deficiency anemia, unspecified; E78.00 Pure hypercholesterolemia, unspecified; E78.5 Hyperlipidemia, unspecified; I12.9 Hypertensive chronic kidney disease with stage 1 through stage 4 chronic kidney disease, or unspecified chronic kidney disease; I73.9 Peripheral vascular disease, unspecified; K59.00 Constipation, unspecified; M19.90 Unspecified osteoarthritis, unspecified site; F32.9 Major depressive disorder, single episode, unspecified; F41.9 Anxiety disorder, unspecified; Z90.79 Acquired absence of other genital organ(s); Z87.442 Personal history of urinary calculi; Z85.46 Personal history of malignant neoplasm of prostate; Z79.899 Other long term (current) drug therapy; Z68.29 Body mass index [BMI] 29.0-29.9, adult; Z98.49 Cataract extraction status, unspecified eye; M25.50 Pain in unspecified joint; M47.892 Other spondylosis, cervical region; E86.0 Dehydration
CPT/HCPCS: 36415; 70450; 72040; 76770; 80048; 80053; 80069; 81001; 82728; 83540; 83550; 83690; 83735; 85018; 85027; 85045; 93005; 96374; 96375; J1756; J2405; J3010; J3360; J3475; J7030; J7050; 99285-25

== ENCOUNTER → 2016-12-06 | Outpatient (CLI) | payer OTHER ==
[~2016-12-06] MED LIST changes: +ATEN25TA PO; +Bisacodyl PR; +CYCL10TA2 PO; +LACT20SO PO; +SENN-22 PO; +SODI650T PO
--- NOTE | 2016-12-06 13:38 | CARD ---
APPROVED REPORT EXAM: Two-dimensional and M-mode echocardiogram with Doppler and color Doppler. Other Information Quality : Average Rhythm : NSR INDICATION Hypertension/HCVD 2D DIMENSIONS RVDd2.7 (2.9-3.5cm)Left Atrium(2D)3.1 (1.6-4.0cm) IVSd1.0 (0.7-1.1cm)Aortic Root(2D)2.8 (2.0-3.7cm) LVDd4.5 (3.9-5.9cm)LVOT Diameter2.0 (1.8-2.4cm) PWd1.0 (0.7-1.1cm)LVDs3.3 (2.5-4.0cm) FS (%) 26.3 %SV47.6 ml LVEF(%)51.8 (>50%) Aortic Valve AoV Peak Alex.115.4cm/sAoV VTI25.5cm AO Peak GR.5.3mmHgLVOT Peak Alex.104.4cm/s AO Mean GR.3mmHgAVA (VMAX)2.74cm2 Mitral Valve MV E Hprkucfk43.1cm/sMV E Peak Gr.4mmHg MV DECEL [id number] A Romfzany40.1cm/s MV E Mean Gr.2mmHgMV KRD23su E/A Ratio0.8MV A Dgnweenk735bw MVA (PHT)3.30cm2 LEFT VENTRICLE The left ventricle is normal size. There is normal left ventricular wall thickness. Left ventricle sy stolic function is normal. The Ejection Fraction is 50-55%. There is normal LV segmental wall motion. Tissue Doppler imaging reveals mild left ventricular diastolic dysfunction. RIGHT VENTRICLE The right ventricle is normal size. The right ventricular systolic function is normal. ATRIA The left atrium size is normal. The right atrium size is normal. The interatrial septum is intact wit h no evidence for an atrial septal defect or patent foramen ovale as noted on 2-D or Doppler imaging. AORTIC VALVE The aortic valve is trileaflet and mildly sclerotic Doppler and Color Flow revealed no significant ao rtic regurgitation. There is no significant aortic valvular stenosis. MITRAL VALVE The mitral valve is normal in structure and function. There is no mitral valve stenosis. Doppler and Color Flow revealed no mitral valve regurgitation noted. TRICUSPID VALVE The tricuspid valve is normal in structure and function. Doppler and Color Flow revealed no tricuspid valve regurgitation noted. Unable to estimate PA pressure. There is no tricuspid valve stenosis. PULMONIC VALVE The pulmonic valve is not well visualized. Doppler and Color Flow revealed trace to mild pulmonic shaw vular regurgitation. There is no pulmonic valvular stenosis. GREAT VESSELS The aortic root is normal in size. Pulmonary veins not recorded. The IVC is normal in size and collap ses >50% with inspiration. PERICARDIAL EFFUSION There is no evidence of significant pericardial effusion. Critical Notification Critical Value: No <Conclusion> Left ventricle systolic function is normal. The Ejection Fraction is 50-55%. There is normal LV segmental wall motion. Tissue Doppler imaging reveals mild left ventricular diastolic dysfunction. No significant valvular disease.
== END | disposition home or self-care (01) ==
LOC: ECHO 08:45
PROVIDERS: ATTEND Internal Medicine Cardiovascular Disease
DX: I10 Essential (primary) hypertension (principal); I37.1 Nonrheumatic pulmonary valve insufficiency
CPT/HCPCS: 93306

== ENCOUNTER → 2017-01-25 | Outpatient (CLI) | payer OTHER ==
--- NOTE | 2017-01-25 15:28 | RAD ---
Renal ultrasound, 01/25/2017: History: Chronic kidney disease The right kidney measures 8.9 cm in length while the left kidney measures 8.4 cm. There is mild bilateral renal cortical scarring. A 1.6 cm cyst is seen in the upper pole of the right kidney. No other renal mass is seen. There is no evidence of hydronephrosis. The renal parenchymal echogenicity is within normal limits. The partially filled urinary bladder is unremarkable. IMPRESSION: 1. Small right renal cyst. 2. Mild bilateral renal cortical scarring. 3. No evidence of renal obstruction.
== END | disposition home or self-care (01) ==
LOC: US 11:52
PROVIDERS: ATTEND Urology
DX: N18.3 Chronic kidney disease, stage 3 (moderate) (principal); N28.1 Cyst of kidney, acquired; C61 Malignant neoplasm of prostate
CPT/HCPCS: 76770

== ENCOUNTER 2017-12-13 15:06 | Inpatient (IN) | payer OTHER ==
[2017-12-13 16:07] LABS: BASO # 0.1 x10^3/uL (0.0-0.2); BASO % 0 % (0-3); EOS # 0.3 x10^3/uL (0.0-0.7); EOS % 2 % (0-3); HEMATOCRIT 32.7 % (39.0-53.0); HEMOGLOBIN 11.1 g/dL (13.0-17.5); LYMPH # 1.3 x10^3/uL (1.0-4.8); LYMPH % 7 % (24-48); MEAN CORPUSCULAR HEMOGLOBIN 32 pg (25-35); MEAN CORPUSCULAR HGB CONC 34 g/dL (31-37); MEAN CORPUSCULAR VOLUME 94 fL (79-100); MONO % 6 % (0-9); NEUT # 15.1 x10^3uL (1.8-7.7); NEUT % 85 % (31-73); PLATELET COUNT 254 x10^3/uL (140-400); RED BLOOD COUNT 3.49 x10^6/uL (4.30-5.70); RED CELL DISTRIBUTION WIDTH 13.2 % (11.5-14.5); WHITE BLOOD COUNT 17.7 x10^3/uL (4.0-11.0)
[2017-12-13 16:10] LABS: ADD MAN DIFF? YES
[2017-12-13 16:13] LABS: ANION GAP 12 (6-14); BLOOD UREA NITROGEN 49 mg/dL (8-26); BUN/CREATININE RATIO 17 (6-20); CALCIUM 9.2 mg/dL (8.5-10.1); CARBON DIOXIDE 23 mmol/L (21-32); CHLORIDE 104 mmol/L (98-107); CREATININE 2.9 mg/dL (0.7-1.3); GFR 20.8; GLUCOSE 107 mg/dL (70-99); POTASSIUM 4.6 mmol/L (3.5-5.1); PROTHROMBIN TIME PATIENT 12.6 SEC (11.7-14.0); SODIUM 139 mmol/L (136-145)
[2017-12-13 16:20] LABS: LACTIC ACID 1.3 mmol/L (0.4-2.0)
[2017-12-13 16:24] LABS: TROPONINI < 0.017 ng/mL (0.000-0.055)
[2017-12-13 16:26] LABS: CKMB INDEX 0.8 % (0-4); CKMB MASS 0.9 ng/mL (0.0-3.6); CREATINE KINASE 114 U/L (39-308)
[2017-12-13 16:26] LABS: NT-PRO BNP 684 pg/mL (0-449)
[2017-12-13 16:28] LABS: ALBUMIN 3.4 g/dL (3.4-5.0); ALBUMIN/GLOBULIN RATIO 0.8 (1.0-1.7); ALK PHOS 70 U/L (46-116); ALT (SGPT) 17 U/L (16-63); AST (SGOT) 25 U/L (15-37); TOTAL BILIRUBIN 0.6 mg/dL (0.2-1.0); TOTAL PROTEIN 7.9 g/dL (6.4-8.2)
[2017-12-13 16:44] LABS: INFLUENZA A PATIENT NEGATIVE (NEGATIVE); INFLUENZA B PATIENT NEGATIVE (NEGATIVE); OBC FLU VALID
[2017-12-13 17:02] LABS: BASE EXCESS COOX -2 mmol/L (-3-3); CARBON MONOXIDE 0.3 % (0.0-1.9); HCO3 COOX 21 mmol/L (21-28); METHEMOGLOBIN 0.5 % (0.0-1.9); OXYHEMOGLOBIN 95.2 %; PCO2 COOX 31 mmHg (35-46); PH COOX 7.45 (7.35-7.45); PO2 COOX 82 mmHg (65-108); SAT O2 COOX 96 % (92-99); TOTAL HEMOGLOBIN 11.5 g/dL
[2017-12-13 17:03] LABS: FIO2 COOX 21
[2017-12-13] MEDS: AZITHRMYCN 500MG IVPB FOR OMNI 250 ML IV (17:10)
[2017-12-13 17:21] LABS: BILIRUBIN,URINE NEGATIVE (NEG); CLARITY,URINE CLEAR; COLOR,URINE YELLOW; GLUCOSE,URINE NEGATIVE (NEG); NITRITE,URINE NEGATIVE (NEG); PH,URINE 6.5; PROTEIN,URINE 30 mg/dL (NEG-TRACE); UROBILINOGEN,URINE 0.2 mg/dL (0.2 mg/dL)
[2017-12-13 17:28] LABS: BACTERIA,URINE 0 /HPF (0-FEW); RBC,URINE 0 /HPF (0-2); WBC,URINE OCC /HPF (0-4)
[2017-12-13 17:59] LABS: % BANDS 14 % (0-9); % BASOS 1 % (0-3); % EOS 2 % (0-5); % LYMPHS 10 % (24-48); % MONOS 3 % (0-10); % SEGS 70 % (35-66); PLT ESTIMATE ADEQUATE (ADEQUATE)
[2017-12-13] MEDS: tiZANidine 4 MG TABLET. PO (21:23)
[2017-12-13] MEDS: SODIUM BICARBONATE 650 MG TABLET. PO (21:24)
[2017-12-13] MEDS ORDERED: traMADol 50 MG TABLET PO (21:45)
[2017-12-13] MEDS: IV NORMAL SALINE 1000ML BAG 1,000 ML IV (22:29)
[2017-12-13] MEDS: ENOXAPARIN 30 MG/0.3 ML SYRINGE. SQ (22:29)
[2017-12-14 03:48] LABS: ADD MAN DIFF? NO
[2017-12-14 03:53] LABS: BASO % 0 % (0-3); EOS # 0.4 x10^3/uL (0.0-0.7); EOS % 3 % (0-3); HEMATOCRIT 29.2 % (39.0-53.0); HEMOGLOBIN 10.1 g/dL (13.0-17.5); LYMPH # 1.9 x10^3/uL (1.0-4.8); LYMPH % 14 % (24-48); MEAN CORPUSCULAR HEMOGLOBIN 32 pg (25-35); MEAN CORPUSCULAR HGB CONC 35 g/dL (31-37); MEAN CORPUSCULAR VOLUME 93 fL (79-100); MONO # 0.9 x10^3/uL (0.0-1.1); MONO % 6 % (0-9); NEUT # 10.4 x10^3uL (1.8-7.7); NEUT % 76 % (31-73); PLATELET COUNT 240 x10^3/uL (140-400); RED BLOOD COUNT 3.13 x10^6/uL (4.30-5.70); RED CELL DISTRIBUTION WIDTH 13.3 % (11.5-14.5); WHITE BLOOD COUNT 13.6 x10^3/uL (4.0-11.0)
[2017-12-14 04:07] LABS: ANION GAP 11 (6-14); BLOOD UREA NITROGEN 45 mg/dL (8-26); CALCIUM 8.7 mg/dL (8.5-10.1); CARBON DIOXIDE 24 mmol/L (21-32); CHLORIDE 104 mmol/L (98-107); CREATININE 2.8 mg/dL (0.7-1.3); GFR 21.7; GLUCOSE 92 mg/dL (70-99); SODIUM 139 mmol/L (136-145)
[2017-12-14] MEDS: IPRATRPIUM/ALBUTEROL 0.5/2.5MG 3 ML NEBU. NEB ×4 (07:36→18:03)
[2017-12-14] MEDS: SODIUM BICARBONATE 650 MG TABLET. PO ×2 (09:02→21:41)
[2017-12-14] MEDS: LOSARTAN POTASSIUM 50 MG TABLET. PO (09:03)
[2017-12-14] MEDS: METOPROLOL SUCC 24HR ER 25 MG TAB.ER.24H. PO (09:03)
[2017-12-14] MEDS: AZITHROMYCIN 250 MG TABLET. PO (09:03)
[2017-12-14] MEDS: IV NORMAL SALINE 1000ML BAG 1,000 ML IV ×2 (15:05→23:08)
[2017-12-14] MEDS: PROMETH/CODEINE 6.25/10MG 5 ML SYRUP. PO (15:08)
[2017-12-14] MEDS: cefTRIAXone IV Push 1 GM VIAL. IVP (15:13)
[2017-12-14] MEDS ORDERED: AZITHROMYCIN 500 MG in IV NORMAL SALINE 250ML 250 ML IV (21:00)
[2017-12-14] MEDS ORDERED: cefTRIAXone IV Push 1 GM VIAL. IVP (21:00)
[2017-12-14] MEDS ORDERED: LACTOBACILLUS RHAMNOSUS GG 1 CAPSULE. PO (21:00)
[2017-12-14] MEDS: ATORVASTATIN CALCIUM 10 MG TABLET. PO (21:41)
[2017-12-14] MEDS: ENOXAPARIN 30 MG/0.3 ML SYRINGE. SQ (21:41)
[2017-12-14] MEDS: tiZANidine 4 MG TABLET. PO (21:41)
[2017-12-15 03:44] LABS: ADD MAN DIFF? NO
[2017-12-15 04:36] LABS: BASO % 0 % (0-3); EOS # 0.3 x10^3/uL (0.0-0.7); EOS % 4 % (0-3); HEMATOCRIT 27.1 % (39.0-53.0); HEMOGLOBIN 9.4 g/dL (13.0-17.5); LYMPH # 1.7 x10^3/uL (1.0-4.8); LYMPH % 21 % (24-48); MEAN CORPUSCULAR HEMOGLOBIN 33 pg (25-35); MEAN CORPUSCULAR HGB CONC 35 g/dL (31-37); MEAN CORPUSCULAR VOLUME 94 fL (79-100); MONO # 0.7 x10^3/uL (0.0-1.1); MONO % 9 % (0-9); NEUT # 5.3 x10^3uL (1.8-7.7); NEUT % 65 % (31-73); PLATELET COUNT 237 x10^3/uL (140-400); RED BLOOD COUNT 2.89 x10^6/uL (4.30-5.70); RED CELL DISTRIBUTION WIDTH 13.4 % (11.5-14.5)
[2017-12-15 05:47] LABS: ANION GAP 10 (6-14); BLOOD UREA NITROGEN 41 mg/dL (8-26); CALCIUM 7.7 mg/dL (8.5-10.1); CARBON DIOXIDE 24 mmol/L (21-32); CHLORIDE 108 mmol/L (98-107); CREATININE 2.7 mg/dL (0.7-1.3); GFR 22.6; GLUCOSE 91 mg/dL (70-99); SODIUM 142 mmol/L (136-145)
[2017-12-15] MEDS: IPRATRPIUM/ALBUTEROL 0.5/2.5MG 3 ML NEBU. NEB (07:50)
[2017-12-15] MEDS: IV NORMAL SALINE 1000ML BAG 1,000 ML IV ×2 (07:59→08:39)
[2017-12-15] MEDS: AZITHROMYCIN 250 MG TABLET. PO (08:35)
[2017-12-15] MEDS: LOSARTAN POTASSIUM 50 MG TABLET. PO (08:36)
[2017-12-15] MEDS: METOPROLOL SUCC 24HR ER 25 MG TAB.ER.24H. PO (08:36)
[2017-12-15] MEDS: SODIUM BICARBONATE 650 MG TABLET. PO (08:36)
[2017-12-15] MEDS: PROMETH/CODEINE 6.25/10MG 5 ML SYRUP. PO (08:37)
== END 2017-12-15 10:24 | disposition home or self-care (01) | DRG 871 ==
LOC: ER 15:06 → 5 NORTH 15:24
DX: A41.9 Sepsis, unspecified organism (principal); J18.9 Pneumonia, unspecified organism; N17.9 Acute kidney failure, unspecified; N18.4 Chronic kidney disease, stage 4 (severe); E03.9 Hypothyroidism, unspecified; E78.00 Pure hypercholesterolemia, unspecified; E78.5 Hyperlipidemia, unspecified; I12.9 Hypertensive chronic kidney disease with stage 1 through stage 4 chronic kidney disease, or unspecified chronic kidney disease; Z80.42 Family history of malignant neoplasm of prostate; Z85.46 Personal history of malignant neoplasm of prostate; Z87.442 Personal history of urinary calculi; Z87.891 Personal history of nicotine dependence; E55.9 Vitamin D deficiency, unspecified; Z98.49 Cataract extraction status, unspecified eye; K57.90 Diverticulosis of intestine, part unspecified, without perforation or abscess without bleeding; M19.90 Unspecified osteoarthritis, unspecified site; I16.0 Hypertensive urgency
CPT/HCPCS: 36415; 36600; 71046; 80048; 80053; 81001; 82553; 82805; 83605; 83880; 84484; 85007; 85025; 85610; 87804; 87804-59; 93005; 94640; 94760; 96365; 96366; 96375; 97161-GP; 97165-GO; 99285; 99285-25; J0456; J0690; J0696; J1650; J7030; J7620; Q0144

== ENCOUNTER → 2018-11-07 | Outpatient (CLI) | payer OTHER ==
[2017-12-15 08:36] VITALS: BP 157/65
[~2018-11-07] MED LIST changes: +AMOX1TAB61 PO; +LOSA100T14 PO; -LOSA100T6 PO; +METO-239 PO; +TIZA4TAB PO; +metoprolol PO
--- NOTE | 2018-11-07 11:45 | CARD ---
MR#: [id number] Date of Study: 11/07/2018 Ordering Physician: KELLI HOYOS, Referring Physician: KELLI HOYOS Tech: Olive Guzman RDCS APPROVED REPORT EXAM: Two-dimensional and M-mode echocardiogram with Doppler and color Doppler. Other Information Quality : AverageHR: 74bpm Rhythm : NSR INDICATION Hypertension/HCVD 2D DIMENSIONS RVDd3.5 (2.9-3.5cm)Left Atrium(2D)3.0 (1.6-4.0cm) IVSd1.2 (0.7-1.1cm)Aortic Root(2D)2.9 (2.0-3.7cm) LVDd4.4 (3.9-5.9cm)LVOT Diameter1.9 (1.8-2.4cm) PWd1.1 (0.7-1.1cm)LVDs2.9 (2.5-4.0cm) FS (%) 34.3 %SV54.5 ml LVEF(%)63.7 (>50%) M-Mode DIMENSIONS Left Atrium(MM)3.22 (2.5-4.0cm)Aortic Root3.29 (2.2-3.7cm) Aortic Valve AoV Peak Alex.146.4cm/sAoV VTI31.8cm AO Peak GR.8.6mmHgLVOT Peak Alex.116.3cm/s AO Mean GR.5mmHgAVA (VMAX)2.32cm2 JOSTIN (VTI)2.30cm2 Mitral Valve MV E Lophecfy60.5cm/sMV DECEL HXOX533sr MV A Ddixcllf873.6cm/sE/A Ratio0.8 MV A Ittsmlbc407wm Pulmonary Valve PV Peak Bjzujjtz04.1cm/s Tricuspid Valve TR P. Vjltxpcp183tz/sRAP OUUKUXXJ6trHj TR Peak Gr.53kvKlNOVU50scTs LEFT VENTRICLE The left ventricle is normal size. There is mild concentric left ventricular hypertrophy. The left ve ntricular systolic function is normal and the ejection fraction is within normal range. The Ejection Fraction is 60-65%. There is normal LV segmental wall motion. Transmitral Doppler flow pattern is Gra de I-abnormal relaxation pattern. RIGHT VENTRICLE The right ventricle is borderline dilated. There is normal right ventricular wall thickness. The righ t ventricular systolic function is normal. ATRIA The left atrium size is normal. The right atrium size is normal. The interatrial septum is intact wit h no evidence for an atrial septal defect or patent foramen ovale as noted on 2-D or Doppler imaging. AORTIC VALVE The aortic valve is normal in structure and function. The aortic valve is trileaflet. Doppler and Col or Flow revealed no significant aortic regurgitation. There is no significant aortic valvular stenosi s. MITRAL VALVE The mitral valve is normal in structure and function. There is no evidence of mitral valve prolapse. There is no mitral valve stenosis. Doppler and Color Flow revealed no mitral valve regurgitation note d. TRICUSPID VALVE The tricuspid valve is normal in structure and function. Doppler and Color Flow revealed mild tricusp id regurgitation. The PA pressure was estimated at 33 mmHg. There is no tricuspid valve prolapse or v egetation. There is no tricuspid valve stenosis. PULMONIC VALVE The pulmonic valve is not well visualized. Doppler and Color Flow revealed mild pulmonic valvular reg urgitation. GREAT VESSELS The aortic root is normal in size. The ascending aorta is normal in size. The IVC is normal in size a nd collapses >50% with inspiration. PERICARDIAL EFFUSION There is no evidence of significant pericardial effusion. Critical Notification Critical Value: No <Conclusion> The left ventricular systolic function is normal and the ejection fraction is within normal range. Th e Ejection Fraction is 60-65%. There is normal LV segmental wall motion. Doppler and Color Flow revealed mild tricuspid regurgitation. The PA pressure was estimated at 33 mmH g. Signed by : Souleymane Gonsalez, Electronically Approved : 11/07/2018 11:44:53
== END | disposition home or self-care (01) ==
LOC: ECHO 10:54
PROVIDERS: ATTEND Internal Medicine Cardiovascular Disease
DX: I08.8 Other rheumatic multiple valve diseases (principal); I11.9 Hypertensive heart disease without heart failure
CPT/HCPCS: 93306

== ENCOUNTER 2019-03-22 13:30 | Emergency (ER) | payer OTHER ==
[~2019-03-22] VITALS: Ht 160 cm; Wt 74.4 kg
[~2019-03-22 13:30] MED LIST changes: -TIZA4TAB PO; +TIZA4TAB2 PO
[2019-03-22] MEDS ORDERED: fentaNYL PF VIAL 100 MCG/2 ML VIAL IM ONE (14:15)
--- NOTE | 2019-03-22 14:22 | PHYS DOC ---
Past Medical History Past Medical History: Cancer, High Cholesterol, Hypertension, Renal Disease Additional Past Medical Histor: prostate CA Past Surgical History: Cancer Surgery Additional Past Surgical Histo: Left fistula, prostate, cataract Alcohol Use: None Drug Use: None Adult General Chief Complaint Chief Complaint: UPPER EXTREMITY PAIN [facility] HPI Patient is a 84 year old male who presents with complaining of right shoulder pain. Patient states he had an accidental fall 2 weeks ago and landed on right shoulder without other injuries or pain in his shoulder. Patient complaining of pain in right shoulder since this morning as a constant pain that getting worse with movement and activity and rated his pain 10 over 10 without focal neuro deficit. Patient states he did not take any pain medication at home. Patient has history of chronic renal failure with left AV fistula without starting dialysis yet. Review of Systems Review of Systems Constitutional: Denies fever or chills [] Eyes: Denies change in visual acuity, redness, or eye pain [] HENT: Denies nasal congestion or sore throat [] Respiratory: Denies cough or shortness of breath [] Cardiovascular: No additional information not addressed in HPI [] GI: Denies abdominal pain, nausea, vomiting, bloody stools or diarrhea [] : Denies dysuria or hematuria [] Musculoskeletal: Denies back pain, reports joint pain [] Integument: Denies rash or skin lesions [] Neurologic: Denies headache, focal weakness or sensory changes [] Endocrine: Denies polyuria or polydipsia [] All other systems were reviewed and found to be within normal limits, except as documented in this note. Current Medications Current Medications Current Medications Medications (Trade) Dose Ordered Sig/[facility] Start Time Stop Time Status Last Admin Dose Admin Fentanyl Citrate (Fentanyl 2ml Vial) 50 mcg 1X ONCE 03/22/19 14:15 03/22/19 14:17 DC 03/22/19 14:47 50 MCG Allergies Allergies Allergies Coded Allergies Type Severity Reaction Last Updated Verified No Known Drug Allergies 07/18/14 No Physical Exam Physical Exam Constitutional: Well developed, moderate distress, non-toxic appearance. [] HENT: Normocephalic, atraumatic. Eyes: PERRLA, EOMI, conjunctiva normal, no discharge. [] Neck: Normal range of motion, no tenderness, supple, no stridor. [] Cardiovascular:Heart rate regular rhythm, no murmur [] Lungs & Thorax: Bilateral breath sounds clear to auscultation [] Extremities: Right upper extremity without deformity or edema, painful range of motion, tenderness in proximal humerus, no neurovascular deficit. Neurologic: Alert and oriented X 3, normal motor function, normal sensory function, no focal deficits noted. [] Psychologic: Affect normal, judgement normal, mood normal. [] Current Patient Data Vital Signs Vital Signs Date Time Temp Pulse Resp B/P (MAP) Pulse Ox O2 Delivery O2 Flow Rate FiO2 03/22/19 15:16 74 18 179/70 (106) 99 Room Air 03/22/19 13:56 98.2 98.2 EKG EKG [] Radiology/Procedures Radiology/Procedures [address] [address] IMAGING REPORT Signed PATIENT: ROSS MENDOZA ACCOUNT: [id number] : 1935 LOCATION: ER AGE: 84 SEX: M EXAM STATUS: REG ER ORD. PHYSICIAN: JORDANA SANTOS MD REASON: right shoulder pain PROCEDURE: VENOUS UPPER EXTREMITY RIGHT EXAM: Right upper extremity venous Doppler sonogram. HISTORY: Pain and swelling. TECHNIQUE: Patel scale and color Doppler sonographic evaluation of the right upper extremity veins with spectral waveform analysis was performed. FINDINGS: The proximal brachial vein is only seen on color Doppler and is compressible. There is normal color flow, compression and there are normal spectral waveforms throughout the remainder of the right upper extremity veins. IMPRESSION: No convincing Doppler evidence of upper extremity deep venous thrombosis. Electronically signed by: Karina Merchant MD (03/22/2019 3:34 PM) [place] [id number] DICTATED and SIGNED BY: KARINA MERCHANT MD DATE: 03/22/19 1534 [facility] [address] [place] [address] IMAGING REPORT Signed PATIENT: ROSS MENDOZA ACCOUNT: [id number] : 1935 LOCATION: ER AGE: 84 SEX: M EXAM STATUS: REG ER ORD. PHYSICIAN: JORDANA SANTOS MD REASON: FALL. RIGHT SHOULDER PAIN. UNABLE TO EXTERNALLY ROTATE PROCEDURE: SHOULDER 2+V RIGHT EXAM: Right shoulder, 3 views. HISTORY: Fall. COMPARISON: 03/28/2018 FINDINGS: 3 views of the right shoulder obtained. There is severe glenohumeral joint space narrowing with subchondral sclerosis, subchondral cyst formation, marginal osteophytosis and bony remodeling. There is acromioclavicular joint space narrowing and inferiorly directed spurring. There is no fracture, dislocation or subluxation. IMPRESSION: 1. 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 2. Moderate acromioclavicular osteoarthritis with inferiorly directed spurs. Electronically signed by: Karina Merchant MD (03/22/2019 2:32 PM) [place] [address] DICTATED and SIGNED BY: KARINA MERCHANT MD DATE: 03/22/19 1435 Course & Med Decision Making Course & Med Decision Making Pertinent Imaging studies reviewed. (See chart for details) Evaluation of patient in ER showed 84-year-old male patient with complaining of a fall 2 weeks ago and injury to right shoulder and increasing pain since this morning. Patient had unremarkable x-ray of her shoulder for fracture. Venous ultrasound of right upper extremity for DVT was negative. X-ray showed severe osteoarthritis of right shoulder. Patient treated with fentanyl and felt better. Shoulder sling was applied and patient was advised to follow-up with his primar y care physician for possible physical therapy and more treatment. Dragon Disclaimer Dragon Disclaimer This electronic medical record was generated, in whole or in part, using a voice recognition dictation system. Departure Departure Impression: Primary Impression: Right shoulder strain Additional Impressions: Osteoarthritis, shoulder Chronic renal insufficiency Disposition: HOME, SELF-CARE (at 1528) Condition: IMPROVED Referrals: ESTEBAN DANIELS MD (PCP) Patient Instructions: Shoulder Sprain Additional Instructions: Apply ice on the affected area Follow-up with your primary care physician in 3-5 days Return to ER if not getting better Scripts Hydrocodone/Apap 5-325 (NORCO 5-325 TABLET) 1 Each Tablet 0.5 TAB PO PRN Q6HRS PRN for PAIN, #14 TAB 0 Refills Prov: JORDANA SANTOS MD 03/22/19 Problem Qualifiers Primary Impression: Right shoulder strain Encounter type: initial encounter Qualified Codes: S46.911A - Strain of unspecified muscle, fascia and tendon at shoulder and upper arm level, right arm, initial encounter Additional Impressions: Osteoarthritis, shoulder Osteoarthritis type: unspecified Laterality: right Qualified Codes: M19.011 - Primary osteoarthritis, right shoulder JORDANA SANTOS MD Mar 22, 2019 14:22
--- NOTE | 2019-03-22 14:35 | RAD ---
EXAM: Right shoulder, 3 views. HISTORY: Fall. COMPARISON: 03/28/2018 FINDINGS: 3 views of the right shoulder obtained. There is severe glenohumeral joint space narrowing with subchondral sclerosis, subchondral cyst formation, marginal osteophytosis and bony remodeling. There is acromioclavicular joint space narrowing and inferiorly directed spurring. There is no fracture, dislocation or subluxation. IMPRESSION: 1. 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 2. Moderate acromioclavicular osteoarthritis with inferiorly directed spurs. Electronically signed by: Karina Mccann MD (03/22/2019 2:32 PM) [facility]
[2019-03-22 15:16] VITALS: BP 179/70
[2019-03-22] MEDS ORDERED: HYDR-3164 PO ×2 (15:30→16:25)
--- NOTE | 2019-03-22 15:37 | RAD ---
EXAM: Right upper extremity venous Doppler sonogram. HISTORY: Pain and swelling. TECHNIQUE: Patel scale and color Doppler sonographic evaluation of the right upper extremity veins with spectral waveform analysis was performed. FINDINGS: The proximal brachial vein is only seen on color Doppler and is compressible. There is normal color flow, compression and there are normal spectral waveforms throughout the remainder of the right upper extremity veins. IMPRESSION: No convincing Doppler evidence of upper extremity deep venous thrombosis. Electronically signed by: Karina Mccann MD (03/22/2019 3:34 PM) [place] [id number]
== END 2019-03-22 16:03 | disposition home or self-care (01) ==
LOC: ER 13:30
DX: S46.811A Strain of other muscles, fascia and tendons at shoulder and upper arm level, right arm, initial encounter (principal); M19.011 Primary osteoarthritis, right shoulder; M79.641 Pain in right hand; I12.9 Hypertensive chronic kidney disease with stage 1 through stage 4 chronic kidney disease, or unspecified chronic kidney disease; N18.9 Chronic kidney disease, unspecified; E78.00 Pure hypercholesterolemia, unspecified; W18.39XA Other fall on same level, initial encounter; Y93.89 Activity, other specified; Y92.89 Other specified places as the place of occurrence of the external cause; Y99.8 Other external cause status
CPT/HCPCS: 73030; 93971; 96372; 99284; J3010

== ENCOUNTER → 2021-01-22 | Outpatient (CLI) | payer MEDICARE ==
[2020-12-29 10:59] VITALS: BP 162/58
[~2021-01-22] MED LIST changes: +AMLO-186 PO; +HYDR-3164 PO; +REGADENOSON 0.4 MG/5 ML DISP.SYRIN. IV ONE
--- NOTE | 2021-01-22 13:21 | RAD ---
MR#: [id number] Date of Study: 01/22/2021 Ordering Physician: KELLI HOYOS Referring Physician: LOGAN CANSECO Tech: RT Jimmie Celis) (N) APPROVED REPORT Test Type: Pharmacological Stress Nurse/Tech: Erna Agee R.N. Test Indications: syncope Cardiac History: htn Medications: See Electronic Medical Record Medical History: See Electronic Medical Record Resting ECG: SR Resting Heart Rate: 79 bpm Resting Blood Pressure: 147/54mmHg Pretest Chest Pain: No chest pain Nurse/Tech Notes S1S2, lungs CTA Consent: The procedure was explained to the patient in lay terms. Informed consent was witnessed. Ralf eout was entered into [employer]. History and Stress Test performed by RT Jimmie Celis) (N) Pharm. Details Pharmacologic stress testing was performed using 0.4mg per 5ml of regadenoson given intravenously ove r 7-10 seconds. Stress Symptoms SOA POST EXERCISE Reason for Termination: Infusion complete Max HR: 100 bpm Max Blood Pressure: 149/50mmHg Blood Pressure response to exercise: Normal blood pressure response during stress. Heart Rate response to exercise: wnl Chest Pain: No. Arrhythmia: No. few pvc's ST Change: Yes. very slight ST depression in leads II, v4-6 INTERPRETATION Stress EKG Conclusion: Baseline EKG showed sinus rhythm. No ischemic changes at peak stress. No arr hythmias. Imaging Protocol IMAGE PROTOCOL: Rest Tc-99m/stress Tc-99m 1 day Rest: Stress: Viability: Radiopharm.Tc99m OzsfqiuxeTb90w Sestamibi Dose10.7mCi 30.9mCi Duration 15min. 10min. Img Date 01/22/2021 01/22/2021 Inj-Img Boiy67diy. 60min. Rest Admin Site:IV - Right AntecubitalAdministrator:RT Lalita (Wendi)(N) Stress Admin Site: IV - Right AntecubitalAdministrator: RT Lalita (Wendi)(N) STRESS DATA End Diast. Vol.58.0mlAv. Heart Rate81.0bpm End Syst. Vol.5.0mlCO Index BSA4.3L/min Myocardial Qfsq119.0gEject. Ewvnakkc99.0% Stress Rates Pk. Fill Rate2.99EDV/secLVtime Pk. Fill 198.96msec Pk. Empty Rate4.24ESV/secLVtime Pk. Eject84.08msec 1/3 Pk. Fill0.89EDV/sec Stress Scores Regional WT1.00Summed WT4.00 Regional WM0.00Summed WM0.00 Study quality was good. Left Ventricular size was Normal at Rest and Stress. Lung uptake was . Left Ventricular ejection fraction is >80%. The rest and stress images show normal perfusion, normal contraction and thickening. LV Perf. Quant 17 Seg. SSS5.00 17 Seg. SRS0.00 17 Seg. SDS5.00 Stress Defect Extent (% LAD)0.00Rest Defect Extent (% LAD)0.00Rev. Defect Extent (% LAD)0.00 Stress Defect Extent (% LCX) 57.50Rest Defect Extent (% LCX)0.00Rev. Defect Extent (% LCX)57.50 Stress Defect Extent (% RCA)0.00Rest Defect Extent (% RCA)0.00Rev. Defect Extent (% RCA)0.00 Stress Defect Extent (% JEFF)11.70Rest Defect Extent (% JEFF)0.00Rev. Defect Extent (% JEFF)11.70 Conclusion 1. Regadenoson cardioisotope stress test did not show any evidence of ischemia or infarct. 2. Normal left ventricular systolic function with ejection fraction calculated at >80%. 3. Low risk for cardiac events. Signed by : Kelli Hoyos, Electronically Approved : 01/22/2021 13:21:25
== END ==
LOC: NM 08:19
PROVIDERS: ATTEND Internal Medicine Cardiovascular Disease
DX: I10 Essential (primary) hypertension (principal); R55 Syncope and collapse
CPT/HCPCS: 78452; 93017; A9500; J2785

== ENCOUNTER → 2021-08-30 | Outpatient (CLI) | payer MEDICARE ==
[2020-12-29 15:10] VITALS: BP 162/58
[~2021-08-30] MED LIST changes: +CYCL10TA19 PO; -CYCL10TA2 PO; -REGADENOSON 0.4 MG/5 ML DISP.SYRIN. IV ONE; +TIZA-75 PO; -TIZA4TAB2 PO
--- NOTE | 2021-08-30 17:16 | CARD ---
MR#: [id number] Date of Study: 08/30/2021 Ordering Physician: KELLI HOYOS, Referring Physician: KELLI HOYOS, Tech: Edilia Lee, [facility] APPROVED REPORT EXAM: Two-dimensional and M-mode echocardiogram with Doppler and color Doppler. Other Information Quality : AverageHR: 76bpm INDICATION Hypertension/HCVD 2D DIMENSIONS RVDd2.7 (2.9-3.5cm)Left Atrium(2D)2.8 (1.6-4.0cm) IVSd1.1 (0.7-1.1cm)Aortic Root(2D)3.0 (2.0-3.7cm) LVDd4.9 (3.9-5.9cm)LVOT Diameter2.0 (1.8-2.4cm) PWd1.1 (0.7-1.1cm)LVDs2.6 (2.5-4.0cm) FS (%) 47.2 %SV89.7 ml Aortic Valve AoV Peak Alex.146.9cm/sAoV VTI30.8cm AO Peak GR.8.6mmHgLVOT Peak Alex.145.4cm/s LVOT VTI 27.91cmAO Mean GR.5mmHg JOSTIN (VMAX)2.29ys2TUP (VTI)2.82cm2 Mitral Valve MV E Sbgpdquv93.4cm/sMV DECEL FDKX982zk MV A Cjpmvzew91.6cm/sMV E Mean Gr.2mmHg MV LPO87atP/A Ratio0.8 MVA (PHT)2.91cm2 TDI E/Lateral E'11.9E/Medial E'14.0 Pulmonary Valve PV Peak Asjhsosk29.6cm/sPV Peak Grad.4mmHg Tricuspid Valve TR P. Lgkjybfd266me/sRAP LYLJOJDR7kzVc TR Peak Gr.81iiXhVRBO21fmNv Pulmonary Vein S1 Iuzvyspy01.2cm/sD2 Alzfqotw55.2cm/s PVa arojficv907zgox LEFT VENTRICLE The left ventricle is normal size. There is mild concentric left ventricular hypertrophy. The left ve ntricular systolic function is normal and the ejection fraction is within normal range. The Ejection Fraction is 50-55%. There is normal LV segmental wall motion. Transmitral Doppler flow pattern is Gra de I-abnormal relaxation pattern. RIGHT VENTRICLE The right ventricle is normal size. There is normal right ventricular wall thickness. The right ventr icular systolic function is normal. ATRIA The left atrium size is normal. The right atrium size is normal. The interatrial septum is intact wit h no evidence for an atrial septal defect or patent foramen ovale as noted on 2-D or Doppler imaging. AORTIC VALVE The aortic valve is normal in structure and function. Doppler and Color Flow revealed trace aortic re gurgitation. There is no significant aortic valvular stenosis. Calculated aortic valve area is 3.10 c m2 with maximum pressure gradient of 11 mmHg and mean pressure gradient of 6 mmHg. MITRAL VALVE The mitral valve is normal in structure and function. There is no evidence of mitral valve prolapse. There is no mitral valve stenosis. Doppler and Color Flow revealed trace mitral valve regurgitation. TRICUSPID VALVE The tricuspid valve is normal in structure and function. Doppler and Color Flow revealed trace tricus pid regurgitation. There is no tricuspid valve stenosis. PULMONIC VALVE The pulmonic valve is not well visualized. Doppler and Color Flow revealed trace pulmonic valvular re gurgitation. GREAT VESSELS The aortic root is normal in size. The ascending aorta is normal in size. The IVC is normal in size a nd collapses >50% with inspiration. PERICARDIAL EFFUSION There is no evidence of significant pericardial effusion. Critical Notification Critical Value: No <Conclusion> The left ventricle is normal size. The left ventricular systolic function is normal and the ejection fraction is within normal range. The Ejection Fraction is 50-55%. There is mild concentric left ventricular hypertrophy. Doppler and Color Flow revealed trace aortic regurgitation. There is no significant aortic valvular stenosis. Doppler and Color Flow revealed trace mitral valve regurgitation. Doppler and Color Flow revealed trace tricuspid regurgitation. Signed by : Floyd Uribe MD Electronically Approved : 08/30/2021 17:16:00
== END ==
LOC: ECHO 09:50
PROVIDERS: ATTEND Internal Medicine Cardiovascular Disease
DX: I51.7 Cardiomegaly (principal); I10 Essential (primary) hypertension
CPT/HCPCS: 93306; C8929